=== PATIENT | male | born 1945 ===

== ENCOUNTER 2016-08-02 16:11 | Inpatient (IN) | payer MEDICARE ==
[~2016-08-02] VITALS: Ht 162.6 cm; Wt 51.7 kg
[2016-08-02 16:28] VITALS: BP 147/75; BMI 19.6
[2016-08-02] MEDS ORDERED: FLOMAX0.4 MG PO (16:39)
[2016-08-02] MEDS ORDERED: LOPRESSOR25 MG PO (16:39)
[2016-08-02] MEDS ORDERED: LIPITOR80 MG (16:40)
[2016-08-02] MEDS ORDERED: BAYER CHEWABLE81 MG PO (16:40)
[2016-08-02] MEDS ORDERED: K-TAB10 MEQ PO (16:41)
[2016-08-02] MEDS ORDERED: PACERONE200 MG PO (16:48)
[2016-08-02] MEDS ORDERED: LEXAPRO10 MG PO (16:48)
[2016-08-02] MEDS ORDERED: PRINIVIL20 MG (16:48)
[2016-08-02] MEDS ORDERED: NYSTATIN15 GM TOPICAL (16:50)
[2016-08-02] MEDS ORDERED: NICODERM C1 PATCH .1 TRANSDERM (16:51)
[2016-08-02] MEDS ORDERED: CEFTRIAXONE1 G/VIAL IM (16:51)
[2016-08-02] MEDS ORDERED: IPRAT-ALBUT 0.5-3 ML UPD (16:52)
[2016-08-02] MEDS ORDERED: COLACE100 MG PO (16:53)
[2016-08-02] MEDS ORDERED: SENNA PLUS TA1 UDTAB PO (16:54)
[2016-08-02 17:04] VITALS: BP 147/75
[2016-08-02 19:40] VITALS: BP 141/84
--- NOTE | 2016-08-02 20:00 | NUR ---
PT RESTING IN A WC IN HIS ROOM. ALERT AND ORIENTED X 4. DENIES PAIN OR ACUTE DISCOMFORT. PT REQUESTED HELP WITH PM ADLS BEFORE GETTING IN BED. MOST ADLS DONE WITH MOD ASSIST. PT NOTED TO BE INC. OF A LARGE AMOUNT OF BOWEL AND URINE. ANT CARE AND PAD CHANGE DONE. PT TRANSFERRED INTO BED WITH MOD ASSIST. EXTRA BLANKET PROVIDED PT STATES HE GETS COLD AT NIGHT. SR'S ARE UP X 3 IN BED. CALL LIGHT AND BEDSIDE TABLE ARE WITHIN EASY REACH.
--- NOTE | 2016-08-02 21:50 | NUR ---
RESTING QUIETLY IN BED WITH EYES CLOSED. RESPS ARE EVEN AND UNLABORED. NO ACUTE DISTRESS NOTED.
--- NOTE | 2016-08-02 21:51 | NUR ---
PT IS RESTING QUIETLY IN BED WITH EYES CLOSED. RESPS ARE EVEN AND UNLABORED. NO ACUTE DISTRESS NOTED.
--- NOTE | 2016-08-03 00:10 | NUR ---
PT RESTING IN BED DOING A UPDRAFT TX.
--- NOTE | 2016-08-03 02:38 | NUR ---
PT RESTING, EYES CLOSED. BED LOW. CL IN REACH.
--- NOTE | 2016-08-03 06:01 | NUR ---
PT IS RESTING QUIETLY IN BED WITH EYES CLOSED. NO DISTRESS NOTED. INC. CARE GIVEN.
--- NOTE | 2016-08-03 07:35 | NUR ---
RESTING QUIETLY IN BED. CALL LIGHT IN REACH
--- NOTE | 2016-08-03 08:15 | NUR ---
PT RESTING IN BED WITH EYES OPEN PT INCONTINENT OF URINE AND BOWEL PT CLEANED AND DRYED PT SET UP FOR BREAKFAST CALL LIGHT IN REACH WILL MONITER
[2016-08-03 08:33] VITALS: BP 115/56
[2016-08-03 11:00] VITALS: Ht 162.6 cm; Wt 51.7 kg
--- NOTE | 2016-08-03 14:37 | NUR ---
PT UP IN WHEELCHAIR IN [facility] CALL LIGHT IN REACH NO PROBLEMS WILL MONITER
--- NOTE | 2016-08-03 17:09 | NUR ---
PT UP IN WHEELCHAIR IN ROOM CALL LIGHT IN REACH NO PROBLEMS WILL MONITER
--- NOTE | 2016-08-03 19:10 | NUR ---
SITTING UP IN W/C. DENIES NEEDS.
--- NOTE | 2016-08-03 20:00 | NUR ---
ASSISTED PATIENT UP TO BR COMMODE AFTER URINARY AND BM INCONTINENCE IN BRIEF WHILE IN W/C. ASSISTED HIM TO BR TO COMPLETE TOILETING. SPEECH CLINICIAN NOW ASSISTED PATIENT BACK TO BED AFTER CLEANSING HIM AND PUTTING ON A NEW PULL-UP BRIEF.
[2016-08-03 21:19] VITALS: BP 127/48
--- NOTE | 2016-08-03 22:10 | NUR ---
ASSESSMENT AND HS MEDS COMPLETE. DENIES NEEDS. MEDS GIVEN TO PATIENT CRUSHED IN PUDDING.
--- NOTE | 2016-08-04 00:05 | NUR ---
IN BED, EYES CLOSED. RESTING QUIETLY WITH HOB UP 20 DEGREES.
--- NOTE | 2016-08-04 02:00 | NUR ---
RESTING QUEITLY IN BED, EYES CLOSED. APPEARS COMFORTABLE.
--- NOTE | 2016-08-04 04:30 | NUR ---
IN BED. INJECTION MOLD TOOLING TECHNICIAN CHANGING PATIENT FROM URINE INCONTINENCE IN BRIEF.
[2016-08-04 04:58] LABS: BASOPHILS 0.2 % (0.0-2.0); EOSINOPHILS 1.7 % (0-7); HEMATOCRIT 30.4 % (42.0-54.0); HEMOGLOBIN 9.8 g/dL (13.5-17.5); IMMATURE GRANULOCYTES 0.2 % (0-5); LYMPHOCYTES 26.3 % (15-50); MCH 31.5 pg (26.0-34.0); MCHC 32.2 g/dL (31.0-37.0); MCV 97.7 fL (80.0-100.0); MEAN PLATELET VOLUME 10.9 fL (7.4-10.4); MONOCYTES 8.5 % (2-11); NEUTROPHILS 63.1 % (40-80); PLATELET COUNT 123 10x3/uL (130-400); RBC 3.11 10x6/uL (4.20-6.10); RDW 14.2 % (11.5-14.5); WBC 4.7 10x3/uL (4.8-10.8)
[2016-08-04 05:14] LABS: ANION GAP 9.1 mmol/L (8-16); CALCIUM 7.9 mg/dL (8.5-10.1); CREATININE - SERUM 1.2 mg/dL (0.6-1.3); POTASSIUM - SERUM 3.1 mmol/L (3.5-5.1)
--- NOTE | 2016-08-04 05:40 | NUR ---
REMAINS IN BED, EYES CLOSED. NO DISTRESS EVIDENT.
--- NOTE | 2016-08-04 07:50 | NUR ---
SLEEPING IN BED WITH EYES CLOSED.
--- NOTE | 2016-08-04 08:15 | NUR ---
PT UP IN BED EATING BREAKFAST TOLERATING WELL WILL MONITER
[2016-08-04 09:50] VITALS: BP 141/67
--- NOTE | 2016-08-04 13:52 | RHP ---
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 HISTORY OF PRESENT ILLNESS: The patient is a 71-year-old gentleman who is admitted with a left hemispheric CVA and residual right hemiparesis. He suffered a stroke on June 22, was admitted to [facility], he was [facility] from [facility]. On July 09, he was readmitted to [facility] with respiratory distress. Chest x-ray revealed bibasilar airspace disease, worse on the right than left, and a right pleural effusion. A modified barium swallow evaluation revealed oropharyngeal dysphagia. A diet of mechanical soft with thickened liquids was started, aspiration precautions and continued speech therapy, was transferred to and continues to be at [facility] on July 17 for PT, OT and speech therapy. He was recently given a trial of thin liquids. A chest x-ray on July 29 showed a right lower lobe pneumonia with a small peripneumonic effusion and left lower lobe atelectasis versus pneumonia. His diet was changed back to mechanical soft with thickened liquids. Prior to his CVA in June, he lived alone, was independent with all ADLs and mobility. Currently, he is making progress with minimal to max assist for ADLs and mobility. He needs intensive inpatient therapy to regain his ability discharge back to home. COMORBIDITIES: Include aspiration pneumonia, extensive lower lobe atelectasis, right hemiparesis, hypokalemia, bowel and bladder incontinence, history of SVT, coronary artery disease, COPD, emphysema, right lower lobe pneumonia, right pleural effusion, osteopenia, syncope, lumbar fracture, and multiple rib fractures. PAST MEDICAL HISTORY: Significant for COPD, emphysema, coronary artery disease, history of SVT and also got a history of syncope in the past. PAST SURGICAL HISTORY: Please see previous charts. ALLERGIES: No known drug allergies. CURRENT MEDICATIONS: Include lisinopril 10 mg daily, amiodarone 200 mg b.i.d. He is on Floranex daily. He is on Rocephin, he gets a gram q.24 hours. He is on Senokot 2 tabs daily and Nicoderm patch. He is on Lexapro 10 mg daily, potassium 10 mEq daily, aspirin chewable 81 mg daily, polyethylene glycol 17 grams in 8 ounce of water daily, Colace 100 mg b.i.d. He is on DuoNeb updrafts as needed, Nystatin powder as needed. He is on Lipitor 80 mg at bedtime, and Flomax 0.4 mg q.h.s. HABITS: Does have a history of tobacco use. FAMILY HISTORY: Noncontributory. HISTORY AND PHYSICAL [id number] NAZIAIRINEONIHARIKA II SOCIAL HISTORY: The patient hopes to return back home and get back to his prior level of functioning. REVIEW OF SYSTEMS: GENERAL: Does complain of weakness and fatigue. HEENT: Does complain of cold, cough, or congestion. CARDIOVASCULAR: Denies any chest pain. LUNGS: Does complain of shortness of breath. PHYSICAL EXAMINATION: VITAL SIGNS: Stable, afebrile. GENERAL: Elderly gentleman in no acute distress, alert upon exam. HEENT: Normocephalic and atraumatic. Mucosa moist. NECK: Supple. No lymphadenopathy. LUNGS: Clear in upper cui. HEART: ____ rate and rhythm. ABDOMEN: Benign. EXTREMITIES: No clubbing, cyanosis or edema. NEUROLOGIC: Intact. ASSESSMENT: This is a 71-year-old gentleman admitted to the rehab with a working diagnosis of cerebrovascular accident with right hemiparesis. The patient has potential to make improvement. We instituted the following multidisciplinary therapies including to, but not limited to physical, occupational, respiratory, speech, nutritional services, prosthetics and orthotics. Given his complex condition and risk for more complications, rehabilitation services cannot be provided at a low level of care such as a fci facility. PLAN: 1. Admit to [facility] rehab for intensive inpatient therapy to include the following disciplines: A. Physical therapy to improve gait, all transfer skills and bed mobility to a modified independent level. B. Occupational therapy to improve activities of daily living to a modified independent level. C. Case management to assist with discharge planning and placement options. D. Nutrition to assist with nutritional needs. E. Rehabilitation nursing to assist in monitoring the patient on medical conditions and to assist with any type of bowel or bladder management. 2. The patient's current medication and medical care will be continued. 3. The patient will be placed on standard fall precautions. 4. The patient's estimated length of stay is approximately 7-10 days. 5. We will discuss this patient during care team staff meeting this week. TRANSINT:[id number] Voice Confirmation ID: [id number] DOCUMENT ID: [id number] HISTORY AND PHYSICAL [id number] NIHARIKA STEWART II, SCOTT MD at 1352 CC: [id number] DICTATION DATE: 08/03/16 1118 HOURLY CAREGIVER: 08/03/16 1137 ADM IN [place] [id number] [place] [id number]
--- NOTE | 2016-08-04 17:45 | NUR ---
PT RESTING IN WHEELCHAIR CALL LIGHT IN REACH NO PROBLEMS WILL MONITER
--- NOTE | 2016-08-04 19:00 | NUR ---
PATIENT SITTING UP IN W/C AT BEDSIDE. DENIES NEEDS.
[2016-08-04 19:45] VITALS: BP 132/76
--- NOTE | 2016-08-04 20:00 | NUR ---
ASSISTED PATIENT UP TO BR TO URINATE AND TO CHANGE HIM FROM URINARY INCONTINENCE WHILE SEATED IN W/C. CLEANSED PATIENT AND APPLIED FRESH PULL-UP BRIEF, AND THEN RETURNED HIM TO BED.
--- NOTE | 2016-08-04 21:15 | NUR ---
ASSESSMENT AND HS MEDS COMPLETE. ALTHOUGH PATIENT WAS CHANGED TO REGULAR LIQUIDS, HE STILL INSISTS ON HIS MEDS BEING CRUSHED IN PUDDING, DUE TO FEAR OF CHOKING. DENIES FURTHER NEEDS.
--- NOTE | 2016-08-04 22:15 | NUR ---
RESTING IN BED, EYES CLOSED. HOB UP 40 DEGREES SINCE MED PASS.
--- NOTE | 2016-08-05 | NUR ---
PATIENT AWAKE AFTER SNEEZING IN HIS SLEEP. DENIES NEEDS. CURRENTLY BRIEF IS DRY. CONTINUES WITH HOB UP 40 DEGREES PER PATIENT REQUEST.
--- NOTE | 2016-08-05 01:50 | NUR ---
RESTING IN BED, EYES CLOSED.
--- NOTE | 2016-08-05 04:50 | NUR ---
IN BED, EYES CLOSED. RESPIRATIONS ARE QUIET AND UNLABORED.
--- NOTE | 2016-08-05 06:32 | NUR ---
CHANGED PATIENT TO FRESH SCRUB SHIRT. REMAINS IN BED. DUE TO FREQUENT INCONTINENCE. PATIENT WILL DON SCRUB PANTS AT TIME OF THERAPY.
--- NOTE | 2016-08-05 07:00 | NUR ---
Pt. was received in bed at the beginning of this shift. Awake and oriented x 3. No voiced complaints at this time. No signs of any pain or discomfort. Will be monitoring him throughout this shift and assisting prn with adl's.
[2016-08-05 08:00] VITALS: BP 142/76
--- NOTE | 2016-08-05 12:41 | NUR ---
Nutrititon Follow Up: Chart reviewed. Spoke with pt who reported that his appetite is good. He said that he is eating what he normally does. Pt said that he is not a big eater and usually only eats one big meal per day. Pt likes sandwiches for lunch and refuses supplements at this time. RD encouraged pt to write in food preferences on menu and to increase po intake if possible. Diet: Mechanical Soft with thin liquids PO Intake: 25% (6 meal avg) Wt loss 1# since admit +BM 08/04/16 Labs and meds noted Pt continues with poor po intake - although states that this is normal for him. Rec continue current diet. Rec consider an appetite stimulant to promote po intake. Will honor food preferences. RD following.
--- NOTE | 2016-08-05 14:48 | NUR ---
CARE TEAM MEETING WAS HELD 08/04/16 AND TENATIVE DISCHARGE DATE IS 08/20/16. PATIENT WILL BE RA AT NEXT MEETING. WILL CONTINUE TO FOLLOW WITH PATIENT UNTIL DISCHARGED
--- NOTE | 2016-08-05 18:42 | NUR ---
Pt. has had an uneventful day. He has participated with therapy well today. He transports self around via his wheelchair. Alert and oriented x 3.
--- NOTE | 2016-08-05 19:00 | NUR ---
UP IN W/C IN ROOM. DENIES NEEDS.
[2016-08-05 21:10] VITALS: BP 111/73
--- NOTE | 2016-08-05 21:10 | NUR ---
ASSESSMENT AND HS MEDS COMPLETE. DENIES NEEDS. GAVE PATIENT MEDS CRUSHED IN [place] PUDDING PER HIS REQUEST.
--- NOTE | 2016-08-05 22:35 | NUR ---
RESTING IN BED, EYES CLOSED.
--- NOTE | 2016-08-05 23:30 | NUR ---
PATIENT CALLED TO C/O EMESIS. ADJUNCT PSYCHOLOGY INSTRUCTOR CLEANED HIM UP. EMESIS OCCURRED WITHOUT NAUSEA. SCRUB TOP AND LINENS CHANGED.
--- NOTE | 2016-08-06 02:30 | NUR ---
RESTING QUIETLY IN BED ON LEFT SIDE, EYES CLOSED. NO FURTHER EMESIS TONIGHT.
--- NOTE | 2016-08-06 04:25 | NUR ---
RESTING IN BED ON LEFT SIDE. RESPIRING QUIETLY.
--- NOTE | 2016-08-06 05:45 | NUR ---
REIMBURSEMENT MANAGER JUST CHANGED PATIENT FROM LARGE URINARY IN CONTINENCE. WENT TO HELP HIM PUT ON FRESH SCRUB TOP AND FOUND PATIENT INCONTINENT OF A MODERQATED AMOUNT OF URINE THAT PENETRATED HIS BRIEF AND IN TO HIS PINK BED PAD. CLEANSED PATIENT. REAPPLIED MYCOSTATIN CREAM AND NYSTATIN POWDER TO RASH IN GROINS, ON SCROTUM AND NOW EXTENDING TO HIS BUTTOCKS. CHANGED HIS SCRUB TOP AND PIN BED PAD. PATIENT DENIES FURTHER NEEDS.
[2016-08-06 07:05] LABS: BASOPHILS 0.5 % (0.0-2.0); EOSINOPHILS 2.9 % (0-7); HEMOGLOBIN 9.7 g/dL (13.5-17.5); LYMPHOCYTES 30.9 % (15-50); MCH 31.8 pg (26.0-34.0); MCHC 32.3 g/dL (31.0-37.0); MCV 98.4 fL (80.0-100.0); MEAN PLATELET VOLUME 10.6 fL (7.4-10.4); MONOCYTES 9.3 % (2-11); NEUTROPHILS 56.4 % (40-80); PLATELET COUNT 125 10x3/uL (130-400); RBC 3.05 10x6/uL (4.20-6.10); RDW 14.9 % (11.5-14.5); WBC 4.1 10x3/uL (4.8-10.8)
[2016-08-06 07:17] LABS: ANION GAP 10.1 mmol/L (8-16); CALCIUM 8.3 mg/dL (8.5-10.1); CARBON DIOXIDE 30.2 mmol/L (21.0-32.0); CREATININE - SERUM 1.1 mg/dL (0.6-1.3); POTASSIUM - SERUM 3.3 mmol/L (3.5-5.1)
[2016-08-06 09:50] VITALS: BP 137/71
--- NOTE | 2016-08-06 15:13 | NUR ---
BEDBUG FOUND ON PT BY THERAPIST. PT CHECKED FOR MORE BUGS BUT NONE FOUND. ALL PERSONAL BELONGINGS CHECKED BUT NO MORE BEDBUGS FOUND. ROOM CLEANED AND FUMIGATED.
--- NOTE | 2016-08-06 20:00 | NUR ---
PT IS SITTING IN HIS WC IN HIS ROOM. ALERT AND ORIENTED X 3. DENIES PAIN OR DISCOMFORT AT THIS TIME. REQUESTED ASSISTANCE INTO BED. PT ASSISTED INTO BED WITH MAX ASSIST FOR TRANSFER. INC. CARE GIVEN AND THIS TIME. RIGHT SIDE IS FLACCID. SR'S ARE UP X 2 IN BED. CALL LIGHT AND BEDSIDE TABLE ARE WITHIN EASY REACH.
--- NOTE | 2016-08-06 21:51 | NUR ---
PT IS RESTING QUIETLY IN BED WITH EYES CLOSED. RESPS ARE EVEN AND UNLABORED. NO ACUTE DISTRESS NOTED.
--- NOTE | 2016-08-07 01:29 | NUR ---
RESTING IN BED WITH EYES CLOSED.
--- NOTE | 2016-08-07 03:37 | NUR ---
PT RESTING QUIETLY IN BED WITH EYES CLOSED. NO ACUTE DISTRESS NOTED.
--- NOTE | 2016-08-07 04:00 | NUR ---
pt resting quietly, respirations regular and unlabored, eyes closed, no s/s of acute distress. at beginning of shift patient in huerta via w/c. is able to propell chair independently. pt leans to his right side. pt is able to vocalize his needs.
--- NOTE | 2016-08-07 06:27 | NUR ---
PT RESTING IN BED WITH EYES CLOSED. AWOKE EASILY TO VERBSL STIMULI. INC. CARE GIVEN.
[2016-08-07 09:00] VITALS: BP 132/69
--- NOTE | 2016-08-07 09:45 | NUR ---
SITTING IN WHEELCHAIR IN THERAPY. ALERT AND TOOK AM PILLS WITHOUT DIFFICULTY.
--- NOTE | 2016-08-07 11:40 | NUR ---
SITTING IN WHEELCHAIR AND REFUSES MED UNTIL HE GETS CHOCOLATE PUDDING.
--- NOTE | 2016-08-07 13:18 | NUR ---
SITTING IN WHEELCHAIR IN THE ROOM. CALLIGHT IN REACH.
--- NOTE | 2016-08-07 15:44 | NUR ---
SITTING IN WHEELCHAIR IN ROOM WATCHING TV.
--- NOTE | 2016-08-07 17:27 | NUR ---
SITTING IN WHEELCHAIR WITH HEAD ON THE BED. DENIES PAIN AND STATES I AM TIRED.
--- NOTE | 2016-08-07 19:30 | NUR ---
PT IS SITTING IN A WC IN HIS ROOM. ALERT AND ORIENTED X 3. DENIES PAIN OR DISCOMFORT. VSS. PT REQUESTED ASSIST TO GET IN BED. HE STATED: "IM ACTUALLY DRY FOR ONCE, THAT OTHER GIRL JUST CHANGED ME." TRANSFERRED TO BED WITH MOD ASSIST. SR'S ARE UP X 2 IN BED. CALL LIGHT AND BEDSIDE TABLE ARE WITHIN EASY REACH.
[2016-08-07 20:01] VITALS: BP 148/70
--- NOTE | 2016-08-07 23:00 | NUR ---
PT RESTING QUIETLY IN BED WITH EYES CLOSED. NO DISTRESS NOTED.
--- NOTE | 2016-08-08 00:48 | NUR ---
RESTING IN BED WITH EYES CLOSED.
--- NOTE | 2016-08-08 02:00 | NUR ---
PT RESTING QUIETLY, NO S/S OF ACUTE DISTRESS, RESPIRATIONS REGULAR AND UNLABORED.
--- NOTE | 2016-08-08 03:00 | NUR ---
PT INC. OF A MEDIUM BM. INC. CARE GIVEN. NO FURTHER NEEDS VOICED.
--- NOTE | 2016-08-08 05:54 | NUR ---
PT RESTING IN BED WITH EYES CLOSED. AWAKENS EASILY TO VERBAL STIMULI. NO NEEDS VOICED. LOWER BODY LEFT UNDRESSED AT THIS TIME, DUE TO INCONTINENCE OF URINE.
[2016-08-08 09:00] VITALS: BP 120/72
--- NOTE | 2016-08-08 09:20 | NUR ---
INCONTINENT OF BOWEL AND BLADDER. COMPLETED BED CHANGED. STATES I HAVE INDIGESTION AND REFUSES AM MEDS THIS MORNING. RESTING IN BED WITH CALLIGHT IN REACH.
--- NOTE | 2016-08-08 09:30 | NUR ---
NO COUGHING NOTED. TOOK AM PILLS WITH EASE. CALLIGHT IN REACH.
--- NOTE | 2016-08-08 12:59 | NUR ---
PT IN WHEELCHAIR IN ROOM EATING LUNCH.
--- NOTE | 2016-08-08 15:20 | NUR ---
SITTING IN WHEELCHAIR WITHOUT ANY NEEDS VOICED AND REFUSES NYSTATIN POWDER.
--- NOTE | 2016-08-08 17:45 | NUR ---
SITTING IN WHEELCHAIR EATING DINNER. NO C/O INDIGESTION.
--- NOTE | 2016-08-08 19:18 | NUR ---
PT IS RESTING IN A WC IN HIS ROOM. ALERT AND ORIENTED X 3. DENIES PAIN OR DISCOMOFRT. VSS. PT STATES HE HAS HAD INDEGESTION MOST OF THE DAY, AND THE NEW MEDICINE IS NOT HELPING A LOT YET. PT NOTED TO BE INC. OF A LARGE AMOUNT OF URINE. INC. CARE AND PAD CHANGE DONE. CALL LIGHT AND BEDSIDE TABLE ARE WITHIN EASY REACH.
[2016-08-08 20:00] VITALS: BP 136/76
--- NOTE | 2016-08-08 22:02 | NUR ---
PT. IN BED WITH HOB UP FOR COMFORT. PT. AWAKENS EASILY AND HAS NO VOICED NEEDS/PROBLEMS. CALL LIGHT WITHIN REACH.
--- NOTE | 2016-08-08 22:10 | NUR ---
PT IS RESTING IN BED WITH EYES OPEN. NO NEEDS VOICED.
--- NOTE | 2016-08-09 00:30 | NUR ---
PT RESTING IN BED WITH EYES CLOSED. NO DISTRESS NOTED.
--- NOTE | 2016-08-09 03:11 | NUR ---
RESTING IN BED WITH EYES CLOSED.
--- NOTE | 2016-08-09 05:54 | NUR ---
PT RESTING IN BED WITH EYES CLOSED. AWOKE TO VERBAL STIMULI. PT BEGAN CRYING WHEN TOLD HE HAD A PILL TO TAKE. HE STATED: "THEY JUST TOOK MY BLOOD, I WILL NEVER GET ANY SLEEP." PT REFUSED TO TAKE MED.
[2016-08-09 06:33] LABS: BASOPHILS 0.2 % (0.0-2.0); EOSINOPHILS 2.7 % (0-7); HEMATOCRIT 29.2 % (42.0-54.0); HEMOGLOBIN 9.6 g/dL (13.5-17.5); IMMATURE GRANULOCYTES 0.2 % (0-5); LYMPHOCYTES 28.6 % (15-50); MCH 32.3 pg (26.0-34.0); MCHC 32.9 g/dL (31.0-37.0); MCV 98.3 fL (80.0-100.0); MEAN PLATELET VOLUME 10.3 fL (7.4-10.4); MONOCYTES 10.9 % (2-11); NEUTROPHILS 57.4 % (40-80); PLATELET COUNT 142 10x3/uL (130-400); RBC 2.97 10x6/uL (4.20-6.10); RDW 14.8 % (11.5-14.5); WBC 4.1 10x3/uL (4.8-10.8)
[2016-08-09 06:55] LABS: CALC OSMOLALITY 285 mosm/kg (275-300); CALCIUM 7.7 mg/dL (8.5-10.1); CHLORIDE - SERUM 107 mmol/L (98-107); GLUCOSE 94 mg/dL (74-106); POTASSIUM - SERUM 3.3 mmol/L (3.5-5.1); SODIUM 143 mmol/L (136-145); UREA NITROGEN 15 mg/dL (7-18); eGFR NON AFRICAN AMERICAN 79 mL/min (90-120)
--- NOTE | 2016-08-09 07:00 | NUR ---
Pt. was received in bed at the beginning of this shift. He was alert and oriented x 3. He was repositioned for eatting his breakfast in bed. Vital signs: Temp. 98.0, pulse 66, resp. 14, b/p 140/71, 02Sat. 98%. He is assisted prn with adl's. No signs of any discomfort or distress. Will be monitoring frequently.
[2016-08-09 09:40] VITALS: BP 140/71
--- NOTE | 2016-08-09 12:24 | NUR ---
Pt. is sitting in his wheelchair in his room eatting his lunch. No signs of any problems or concerns. He had been in the therapy gym this morning and participated well.
--- NOTE | 2016-08-09 19:20 | NUR ---
UP IN W/C AT BEDSIDE DENIES NEEDS.
--- NOTE | 2016-08-09 20:40 | NUR ---
ASSISTED PATIENT UP TO COMMODE TO URINATE. COULD NOT DO SO. ALREADY HAD LARGE VOLUME URINARY INCONTINENCE IN BRIEF FROM WHICH IHE WAS CLEANSED AND CHANGED. RETURNED HIM TO BED.
[2016-08-09 22:50] VITALS: BP 140/91
--- NOTE | 2016-08-09 22:50 | NUR ---
ASSESSMENT AND HS MEDS COMPLETE. PATIENT MIDLY IRRITABLE TONIGHT.
--- NOTE | 2016-08-09 23:50 | NUR ---
RESTING IN BED, EYES CLOSED, LYING ON RIGHT SIDE, HOB UP 30 DEGREES.
--- NOTE | 2016-08-10 02:00 | NUR ---
RESTING IN BED, EYES CLOSED. HOB UP 40 DEGREES. PATIENT IN PARTIAL RIGHT SIDELYING POSITION.
--- NOTE | 2016-08-10 04:00 | NUR ---
CONTINUES IN BED, EYES CLOSED. HOB UP 30 DEGREES. RESPIRATIONS ARE QUIET AND UNLABORED.
--- NOTE | 2016-08-10 06:10 | NUR ---
CLEANSED AND CHANGED PATIENT FROM LARGE URINARY INCONTINENCE THAT SOILED HIS PULL-UP BRIEF, PINK BED PAD AND SCRUB TOP. AFTER CLEANSING PATIENT APPLIED NYSTATIN PWD TO BUTTOCKS, GROINS AND PERINEUM DUE TO RASH. APPLIED FRESH SCRUB TOP, PULL-UP BRIEF AND CHANGED PINK BED PAD. PATIENT WAS COOPERATIVE AFTER BEING WHINY INITIALLY. REMINDED HIM HE HAS BEEN HERE LONG ENOUGH TO KNOW WE CANNOT NOT LEAVE HIM WET, AND THAT WE MUST HAVE HIM DRESSED INSOFAR IT IS PRACTICAL, FOR THERAPY THIS MORNING.
--- NOTE | 2016-08-10 07:00 | NUR ---
Pt. was received in bed at the beginning of this shift. Alert and oriented x 3. Pt. denies any pain or discomfort at this time. He is assisted prn with adl's. His medications are crushed and placed in vanilla pudding. Will be monitoring him throughout this shift. Vital signs: Temp. 98.6, pulse 74, resp. 14, b/p 138/76, 02Sat. 97%.
[2016-08-10 09:19] VITALS: BP 138/76
--- NOTE | 2016-08-10 19:00 | NUR ---
PATIENT UP IN W/C IN ROOM. DENIES CURRENT NEEDS.
[2016-08-10 21:00] VITALS: BP 140/74
--- NOTE | 2016-08-10 21:00 | NUR ---
ASSISTED PATIENT UP TO BR TO URINATE AND CHANGE HIS BRIEF AFTER LARGE URINARY INCONTINENCE. CLEANSED PATIENT AND APPLIED VRESH PULL-UP AND SCRUB TOP. RETURNED HIM TO BED AND ASSESSED HIM AND TOOK HIS VS. TOLD HIM I WILL RETURN LATER WITH HIS BEDTIME MEDS.
--- NOTE | 2016-08-10 22:40 | NUR ---
REPOSITIONED PATIENT IN BED. GAVE HIM HIS HS MEDS CRUSHED IN PUDDING. INITIALLY HE REFUSED HIS FLOMAX HE THOUGHT IT WAS A DIURETIC CAUSING HIM TO URINATE EXCESSIVELY. INFORMED HIM IT IS TO ALLOW HIS BLADDER TO EMPTY AND THAT THE URINE HE THINKS IS TOO MUCH IS HIS NORMAL VOLUME, NOT EXCESS. ALSO REMINDED HIM THAT THE FLOWMAX WAS ORDERED FOR HIM HE WAS UNABLE TO EMPTY HIS BLADDER SUBSEQUENT TO HIS STROKE. AFTER THIS PATIENT HAD NO PROBLEM WITH TAKING THE MEDICATION. CONTINUES TO INSIST MEDS BE CRUSHED IN PUDDING DESPITE BEING ON MECHANICAL SODT DIET WITH THIN LIQUIDS.
--- NOTE | 2016-08-11 00:15 | NUR ---
RESTING IN BED ON RIGHT SIDE. NO EVIDENT DISCOMFORT.
--- NOTE | 2016-08-11 02:00 | NUR ---
IN BED, EYES CLOSED. NO DISTRESS NOTED.
--- NOTE | 2016-08-11 04:30 | NUR ---
CONTINUES IN BED, EYES CLOSED. RESPIRING QUIETLY.
--- NOTE | 2016-08-11 05:50 | NUR ---
CLEANSED AND CHANGED PATIENT FROM LARGE URINARY INCONTINENCE. APPLIED MYCOSTATIN CREAM AND NYSTATIN PWD TO RASHY AREAS OF GROINS, BUTTOCKS AND ANT AREAS I HAD TO WASH THE PREVIOUS APPLICATION OFF TO CLEANSE PATIENT. CHANGED HIS SCRUB SHIRT ALSO. SCRUB PANTS LEFT OFF DUE TO ONGOING INCONTINENCE.
[2016-08-11 05:55] LABS: BASOPHILS 0.3 % (0.0-2.0); HEMATOCRIT 28.9 % (42.0-54.0); HEMOGLOBIN 9.3 g/dL (13.5-17.5); LYMPHOCYTES 26.9 % (15-50); MCH 31.3 pg (26.0-34.0); MCHC 32.2 g/dL (31.0-37.0); MCV 97.3 fL (80.0-100.0); MEAN PLATELET VOLUME 9.8 fL (7.4-10.4); MONOCYTES 13.3 % (2-11); NEUTROPHILS 56.5 % (40-80); PLATELET COUNT 139 10x3/uL (130-400); RBC 2.97 10x6/uL (4.20-6.10); RDW 14.7 % (11.5-14.5); WBC 3.6 10x3/uL (4.8-10.8)
[2016-08-11 06:01] LABS: CALC OSMOLALITY 284 mosm/kg (275-300); CALCIUM 8.2 mg/dL (8.5-10.1); CARBON DIOXIDE 28.3 mmol/L (21.0-32.0); CHLORIDE - SERUM 109 mmol/L (98-107); GLUCOSE 87 mg/dL (74-106); POTASSIUM - SERUM 3.4 mmol/L (3.5-5.1); SODIUM 143 mmol/L (136-145); UREA NITROGEN 16 mg/dL (7-18); eGFR NON AFRICAN AMERICAN 79 mL/min (90-120)
[2016-08-11 07:51] VITALS: BP 144/78
--- NOTE | 2016-08-11 09:26 | NUR ---
SITTING IN WHEELCHAIR AFTER SHOWER TODAY.
--- NOTE | 2016-08-11 10:18 | NUR ---
Nutrition Follow Up: Chart reviewed. Diet: Regular Mech Soft with Thin Liquids PO Intake: 68% (9 meal avg) +BM 08/10/16 No new wt to assess Labs noted - K+ low Meds noted Pt with much improved po intake. Rec continue current diet. Will continue to send selective menus and honor food preferences. RD following.
--- NOTE | 2016-08-11 11:50 | NUR ---
SITTING IN WHEELCHAIR EATING LUNCH. NO NEEDS VOICED.
--- NOTE | 2016-08-11 13:49 | NUR ---
AMBULATING IN HALLWAY WITH CANE AND 2 THERAPIST.
--- NOTE | 2016-08-11 15:52 | NUR ---
SITTING IN WHEELCHAIR TALKING TO KEILA SPEECH THERAPIST.
--- NOTE | 2016-08-11 17:19 | NUR ---
CARE TEAM MEETING: TENATIVE DISCHARGE DATE IS 08/20/16. WILL CONTINUE TO FOLLOW WITH PATIENT UNTIL DISCHARGED
--- NOTE | 2016-08-11 17:31 | NUR ---
PT INCONTINENT OF URINE AND ASSISTED TO THE BR AND BACK TO WHEELCHAIR WITHOUT ANY FALLS NOTED. PERICARE DONE.
--- NOTE | 2016-08-11 19:10 | NUR ---
UP IN W/C IN [place]. HANDED ME HIS MENU WHICH HE COMPLETED WITH NON-DOMINANT HAND. APPEARS VERY PLEASED HE WAS ABLE TO DO IT. DENIES CURRENT NEEDS.
--- NOTE | 2016-08-11 20:00 | NUR ---
SHIP BOSS ASSISTED PATIENT UP TO BR SAFIA TO URINATE AFTER INCONTINENCE IN HIS BRIEF. PATIENT WAS THEN RETURNED TO BED WHERE HE NOW IS. DENIES CURRENT NEEDS.
[2016-08-11 20:14] VITALS: BP 148/71
--- NOTE | 2016-08-11 22:15 | NUR ---
ASSESSMENT AND HS MEDS COMPLETE. DENIES NEEDS. TOOK PO MEDS CRUSHED IN CHOCOLATE PUDDING.
--- NOTE | 2016-08-12 00:15 | NUR ---
IN BED, AWAKE. DENIES NEEDS.
--- NOTE | 2016-08-12 02:40 | NUR ---
RESTING IN BED, EYES CLOSED.
--- NOTE | 2016-08-12 04:35 | NUR ---
IN BED, EYES CLOSED, RESPIRATIONS UNLABORED.
--- NOTE | 2016-08-12 05:55 | NUR ---
GAVE PATIENT SCHEDULED PO PROTONIX. PATIENT WAS ALREADY CLEANSED AND CHANGED BY BENDER MACHINE. DENIES CURRENT NEEDS.
[2016-08-12 08:16] VITALS: BP 131/74
--- NOTE | 2016-08-12 09:58 | NUR ---
SITTING IN WHEELCHAIR IN THE ROOM. ASSISTED TO BR AND HAD A MEDIUM BRONW STOOL AND BACK TO WHEELCHAIR. TOOK 9AM PILLS WITH EASE BUT REFUSES SENEKOT THIS AM. CALLIGHT IN REACH.
--- NOTE | 2016-08-12 13:15 | NUR ---
SITTING IN ROOM IN WHEELCHAIR WITH CALLIGHT IN REACH.
--- NOTE | 2016-08-12 15:02 | NUR ---
SITTING IN WHEELCHAIR WITH CALLIGHT IN REACH.
--- NOTE | 2016-08-12 17:23 | NUR ---
ASSISTED TO BR AND BACK TO WHEELCHAIR INCONTINENT OF URINE. NO FALLS NOTED.
--- NOTE | 2016-08-12 19:00 | NUR ---
UP IN W/C AT BEDSIDE. NO COMPLAINTS AT THIS TIME.
--- NOTE | 2016-08-12 21:35 | NUR ---
RESTING IN BED, EYES CLOSED.
--- NOTE | 2016-08-12 22:50 | NUR ---
ASSESSMENT AND HS MEDS COMPLETE. GAVE PATIENT ORAL MEDS CRUSHED IN CHOCOLATE PUDDING. TO INCONTINENCE, CURRENTLY PATIENT IS DRY.
[2016-08-12 22:54] VITALS: BP 143/71
--- NOTE | 2016-08-13 00:15 | NUR ---
RESTING IN BED, EYES CLOSED IN PARTIAL RIGHT SIDELYING POSITION.
--- NOTE | 2016-08-13 02:15 | NUR ---
RESTING IN BED, HOB UP 20 DEGREES. LYING PARTIALLY ON RIGHT SIDE.
--- NOTE | 2016-08-13 04:15 | NUR ---
RESTING QUIETLY IN BED. RESPIRATIONS UNLABORED.
--- NOTE | 2016-08-13 06:54 | NUR ---
GAVE PATIENT SCHEDULED PROTONIX AFTER POLITICAL CONSULTANT JUST CLEANSED AND CHANGED PATIENT.
[2016-08-13 08:14] LABS: BASOPHILS 0.5 % (0.0-2.0); EOSINOPHILS 2.6 % (0-7); HEMATOCRIT 29.8 % (42.0-54.0); HEMOGLOBIN 9.8 g/dL (13.5-17.5); IMMATURE GRANULOCYTES 0.3 % (0-5); LYMPHOCYTES 20.1 % (15-50); MCH 32.2 pg (26.0-34.0); MCHC 32.9 g/dL (31.0-37.0); MEAN PLATELET VOLUME 9.9 fL (7.4-10.4); MONOCYTES 10.2 % (2-11); NEUTROPHILS 66.3 % (40-80); PLATELET COUNT 154 10x3/uL (130-400); RBC 3.04 10x6/uL (4.20-6.10); RDW 14.8 % (11.5-14.5); WBC 3.8 10x3/uL (4.8-10.8)
[2016-08-13 08:36] LABS: ANION GAP 10.3 mmol/L (8-16); CALCIUM 8.2 mg/dL (8.5-10.1); CARBON DIOXIDE 28.5 mmol/L (21.0-32.0); CREATININE - SERUM 1.1 mg/dL (0.6-1.3); POTASSIUM - SERUM 3.8 mmol/L (3.5-5.1)
--- NOTE | 2016-08-13 09:30 | NUR ---
ASSISTED TO WHEELCHAIR AND TOOK AM PILLS. NO NEEDS VOICED.
[2016-08-13 10:34] VITALS: BP 136/74
--- NOTE | 2016-08-13 13:26 | NUR ---
SITTING IN WHEELCHAIR NO NEEDS NOTED.
--- NOTE | 2016-08-13 15:06 | NUR ---
SITTING IN WHEELCHAIR IN GYM DRINKING WATER. NO NEEDS VOICED.
--- NOTE | 2016-08-13 17:50 | NUR ---
SITTING IN WHEELCHAIR IN THE ROOM EATING DINNER.
--- NOTE | 2016-08-13 19:35 | NUR ---
PT SITTING UP IN W/C APPEARING TO READ THE NEWSPAPER, NO NEEDS VERBALIZED.
--- NOTE | 2016-08-13 21:21 | NUR ---
PT VERY IRRITATED, ROLAND IN ANSWERING CALLLIGHT, HE STATES HE IS TIRED OF BEING WOKEN UP, BLOOD DRAWN AND READY TO GO HOME. MEDS ADMINISTERED, ASSESSMENT, ASSISTED TO BED.
[2016-08-13 21:37] VITALS: BP 130/68
--- NOTE | 2016-08-14 04:38 | NUR ---
PT RESTING QUIETLY EYES CLOSED, NO S/S OF ACUTE DISTRESS. INCONTINENCE CHECKS DURING THE SHIFT, CHANGED NEEDED.
--- NOTE | 2016-08-14 07:00 | NUR ---
Pt. was received at the beginning of this shift. Alert and oriented x 3. He denied any pain or discomfort. Rt. side is flaccid. Vital signs: Temp. 98.3, pulse 64, resp. 20, b/p 135/79, 02Sat. 97%. Pt. requires total support with his adl's. Will be monitoring pt. throughout this shift and following his plan of care. No signs of distress.
--- NOTE | 2016-08-14 12:00 | NUR ---
Pt. is having an uneventful day. Pt is friendly and cooperative with staff. He transports himself around via his wheelchair.
[2016-08-14 13:41] VITALS: BP 135/79
[2016-08-14 19:20] VITALS: BP 128/60
--- NOTE | 2016-08-14 19:48 | NUR ---
PT SITTING UP IN W/C WATCHING TV, PLEASANT. ASSISTED WITH MENU COMPLETION.
--- NOTE | 2016-08-15 01:05 | NUR ---
pt resting quietly, eyes closed, no s/s of acute distress.
--- NOTE | 2016-08-15 06:36 | NUR ---
pt refused an offer of shower, states will take one later. pt denies being incontinent, didn't want to be bothered and wanted to be able to sleep.
[2016-08-15 07:00] VITALS: BP 145/76
--- NOTE | 2016-08-15 07:00 | NUR ---
PT WAS RECEIVED AT THE BEGINNING OF THE SHIFT AT 0700 IN HIS BED. PT. AWAKE AND ALERT. ORIENTED X 3. DENIES ANY NEEDS OR CONCERNS. CALL LIGHT IS IN REACH. VITAL SIGNS: TEMP. 97.9, PULSE 61, RESP. 16, B/P 145/76, 02SAT. 97%. PT. REQUIRES ASSIST FROM STAFF WITH ALL ADL'S. WILL CONTINUE TO MONITOR.
--- NOTE | 2016-08-15 17:36 | NUR ---
Pt has had an uneventful shift today. No changes to report in health condition. He has watched tv this afternoon and sorta cat-napped in his wheelchair. No voiced complaints to staff. Continuing to observe.
--- NOTE | 2016-08-15 19:30 | NUR ---
RESTING QUIETLY WATCHING TV IN W/C. STATES IS TIRED AND WOULD LIKE TO BE ABLE TO SLEEP. PT REPORTS THAT HE HASN'T BEEN ABLE TO SLEEP WELL, AND IS READY FOR DISCHARGE. PT CONVERSIVE, DISCUSSED FUTURE PROGRESSION AFTER REHAB WTIH CVA DEFICITS. PT STATES HE UNDERSTANDS THE NEED TO BE CAUTIOUS WITH RIGHT ARM.
[2016-08-15 22:05] VITALS: BP 127/70
--- NOTE | 2016-08-16 01:14 | NUR ---
PT REQUESTED MORE LIGHT IN HIS ROOM BE TURNED OFF, TURNED OFF LIGHT OVER SINK. PT CLOSED EYES, SNUGGLED UNDER BLANKETS.
[2016-08-16 06:20] LABS: BASOPHILS 0.2 % (0.0-2.0); EOSINOPHILS 2.1 % (0-7); HEMATOCRIT 30.6 % (42.0-54.0); IMMATURE GRANULOCYTES 0.2 % (0-5); LYMPHOCYTES 16.7 % (15-50); MCH 32.2 pg (26.0-34.0); MCHC 32.7 g/dL (31.0-37.0); MCV 98.4 fL (80.0-100.0); MEAN PLATELET VOLUME 10.2 fL (7.4-10.4); MONOCYTES 9.4 % (2-11); NEUTROPHILS 71.4 % (40-80); PLATELET COUNT 158 10x3/uL (130-400); RBC 3.11 10x6/uL (4.20-6.10); RDW 15.1 % (11.5-14.5); WBC 4.7 10x3/uL (4.8-10.8)
--- NOTE | 2016-08-16 06:36 | NUR ---
PT RESTING QUIETLY, LARGE BM THIS AM INCONTINENT OF BOWEL AND BLADDER. ALERT, ORIENTED.
[2016-08-16 06:39] LABS: ANION GAP 8.6 mmol/L (8-16); CALCIUM 7.8 mg/dL (8.5-10.1); CARBON DIOXIDE 29.1 mmol/L (21.0-32.0); CREATININE - SERUM 1.2 mg/dL (0.6-1.3); POTASSIUM - SERUM 3.7 mmol/L (3.5-5.1)
[2016-08-16 09:02] VITALS: BP 139/78
--- NOTE | 2016-08-16 19:35 | NUR ---
PT. UP IN W/C TALKING ON THE TELEPHONE. ASSESSMENT COMPLETED. PT. HAS NO VOICED NEEDS/COMPLAINTS AT THIS TIME. PT. IS NOT READY TO GO BACK TO BED YET. CALL LIGHT WITHIN REACH.
[2016-08-16 20:30] VITALS: BP 136/77
--- NOTE | 2016-08-16 20:30 | NUR ---
PT. REQUESTING TO BE HELPED BACK TO BED. PROVIDED STANDBY ASSIST WHILE PT. TRANSFERED BACK INTO BED THEN HELPED LIFT LE'S UP INTO BED. PT. POSITIONED HIMSELF TO COMFORT. BRIEF CHANGED IT WAS SOILED AND SKIN CARE PROVIDED TO RED RASH IN GROINS AND SCROTAL AREAS. CALL LIGHT WITHIN REACH.
--- NOTE | 2016-08-17 02:21 | NUR ---
PT. LYING IN BED WITH HOB UP FOR COMFORT WITH EYES CLOSED AND RESP. EVEN. CALL LIGHT WITHIN REACH.
[2016-08-17 08:33] VITALS: BP 147/71
--- NOTE | 2016-08-17 12:24 | NUR ---
Nutrition Follow Up: Chart reviewed. Diet: Regular Mech Soft with Thin Liquids PO Intake: 92% (9 meal avg) +BM 08/16/16 Meds and labs noted No new wt to assess Pt with good po intake at this time. Rec continue current diet. RD following.
--- NOTE | 2016-08-17 19:30 | NUR ---
ASSISTED PATIENT UP TO BR COMMODE TO FINISH URINATING.
[2016-08-17 21:45] VITALS: BP 154/80
--- NOTE | 2016-08-17 21:45 | NUR ---
ASSESSMENT AND HS MEDS COMPLETE. ASSISTED PATIENT UP TO BR TO FINISH URINATING AND CHANGE HIS BRIEF DUE TO INCONTINENCE WHILE SEATED IN W/C PRIOR TO ASSESSMENT.
--- NOTE | 2016-08-17 22:30 | NUR ---
RESTING QUIETLY IN BED, EYES CLOSED.
--- NOTE | 2016-08-18 00:20 | NUR ---
IN BED, EYES CLOSED. NO DISTRESS NOTED.
--- NOTE | 2016-08-18 02:05 | NUR ---
REMAINS IN BED, EYES CLOSED. HOB UP 20 DEGREES, LYING IN PARTIAL RIGHT SIDE POSITION. NO APPARENT DISTRESS.
--- NOTE | 2016-08-18 04:30 | NUR ---
RESTING IN BED, EYES CLOSED. NOW ON BACK, HOB UP 20 DEGREES.
--- NOTE | 2016-08-18 06:05 | NUR ---
PATIENT WAS CLEANSED AND CHANGED (BRIEF AND SCRUB TOP) AND PINK BED PAD WAS CHANGED AFTER LARGE URINARY INCONTINENCE. GAVE PATIENT SCHEDULED PROTONIX PO.
--- NOTE | 2016-08-18 08:00 | NUR ---
BREAKFAST GIVEN.DENIES NEEDS.CL IN REACH.
[2016-08-18 08:27] VITALS: BP 138/63
--- NOTE | 2016-08-18 12:00 | NUR ---
SITTING UP IN WC EATING LUNCH.
--- NOTE | 2016-08-18 16:00 | NUR ---
REMAINS UP IN WC.DENIES NEEDS.
--- NOTE | 2016-08-18 16:23 | NUR ---
CARE TEAM MEETING: REFERRAL HAS BEEN MADE TO [facility] FOR POSSIBLE ADMISSION DUE TO NO ONE TO ASSIT HIM AT HOME. WILL CONTINUE TO FOLLOW WITH PATIENT. TENATIVE DISCHARGE DATE IS 08/20/16
--- NOTE | 2016-08-18 19:00 | NUR ---
UP IN W/C IN ROOM, WATCHING TV. NO COMPLAINTS AT THIS TIME.
[2016-08-18 20:10] VITALS: BP 140/69
--- NOTE | 2016-08-18 20:10 | NUR ---
VS AND ASSESSMENT COMPLETE. PATIENT DENIES NEEDS. REMAINS UP IN W/C AT BEDSIDE.
--- NOTE | 2016-08-18 21:25 | NUR ---
ASSISTED PATIENT INTO BED AND CHANGED ANT PAD WITHIN BRIEF DUE TO URINE INCONTINENCE. GAVE PATIENT HS MEDS CRUSHED IN CHOCOLATE PUDDING.
--- NOTE | 2016-08-18 22:10 | NUR ---
RESTING IN BED, EYES CLOSED. APPEARS COMFORTABLE.
--- NOTE | 2016-08-19 00:15 | NUR ---
RESTING IN BED, EYES CLOSED.
--- NOTE | 2016-08-19 02:20 | NUR ---
RESTING IN BED, EYES CLOSED. HOB UP 30 DEGREES. NO DISTRESS NOTED.
--- NOTE | 2016-08-19 04:30 | NUR ---
CONTINUES IN BED, EYES CLOSED. RESPIRATIONS ARE QUIET AND UNLABORED.
--- NOTE | 2016-08-19 05:45 | NUR ---
CLEANSED AND CHANGED PATIENT FROM MODERATE URINARY INCONTINENCE AND MEDIUM VOLUME SOFT BM INCONTINENCE. GAVE PATIENT SCHEDULED PO PROTONIX. PATIENT DENIES NEEDS.
[2016-08-19 06:41] LABS: BASOPHILS 0.3 % (0.0-2.0); EOSINOPHILS 2.9 % (0-7); HEMATOCRIT 28.2 % (42.0-54.0); HEMOGLOBIN 9.2 g/dL (13.5-17.5); IMMATURE GRANULOCYTES 0.3 % (0-5); LYMPHOCYTES 20.5 % (15-50); MCH 31.8 pg (26.0-34.0); MCHC 32.6 g/dL (31.0-37.0); MCV 97.6 fL (80.0-100.0); MEAN PLATELET VOLUME 9.7 fL (7.4-10.4); MONOCYTES 12.4 % (2-11); NEUTROPHILS 63.6 % (40-80); PLATELET COUNT 162 10x3/uL (130-400); RBC 2.89 10x6/uL (4.20-6.10); RDW 15.2 % (11.5-14.5); WBC 3.8 10x3/uL (4.8-10.8)
[2016-08-19 06:50] LABS: ANION GAP 10.3 mmol/L (8-16); CALCIUM 8.1 mg/dL (8.5-10.1); CARBON DIOXIDE 27.3 mmol/L (21.0-32.0); CREATININE - SERUM 1.2 mg/dL (0.6-1.3); POTASSIUM - SERUM 3.6 mmol/L (3.5-5.1)
--- NOTE | 2016-08-19 08:00 | NUR ---
AWAKE FOR BREAKFAST,SHIFT ASSMT COMPLETED.LT INGUINAL HERNIA REMAINS UNCHANGED.DENIES PAIN ,DENIES NEEDS.CL IN REACH.MEAL SET-UP PROVIDED.
[2016-08-19 09:31] VITALS: BP 130/72
--- NOTE | 2016-08-19 12:00 | NUR ---
SITTING UP IN CHAIR EATING LUNCH.CL IN REACH.
--- NOTE | 2016-08-19 14:53 | NUR ---
PATIENT DISCHARGING TO [facility] 08/20/16 [facility]. NO DME OR HOME HEALTH NEEDED AT THIS TIME.APPOINTMENT WITH DR. PETERSON WILL BE MADE AT TIME OF DISCHARGE FROM THE FACILITY. PATIENT CHOICE FORM FOR SNF AND [facility] FORM SIGNED , EXPLAINED AND FILED IN CHART. WILL CONTINUE TO FOLLOW WITH PATIENT UNTIL DISCHARGED. [facility] WILL TRANSPORT AT 1:00PM
--- NOTE | 2016-08-19 16:00 | NUR ---
IN THERAPY ROOM;JETHRO WELL.DENIES NEEDS.
[2016-08-19 19:00] VITALS: BP 153/74
--- NOTE | 2016-08-19 19:30 | NUR ---
PATIENT UP IN W/C IN ROOM. DENIES NEEDS.
--- NOTE | 2016-08-19 20:30 | NUR ---
PATIENT WAS ASSISTED INTO BED FROM W/C. NO COMPLAINTS AT THIS TIME.
--- NOTE | 2016-08-19 21:45 | NUR ---
ASSESSMENT AND HS MEDS COMPLETE. DENIES NEEDS.
--- NOTE | 2016-08-20 00:15 | NUR ---
ASSISTED PATIENT UP TO BR COMMODE TO URINATE AND HAVE A BM.
--- NOTE | 2016-08-20 00:15 | NUR ---
CONTINUES IN BED, EYES CLOSED.
--- NOTE | 2016-08-20 02:15 | NUR ---
REMAINS IN BED, RESTING QUIETLY.
--- NOTE | 2016-08-20 04:35 | NUR ---
PATIENT AWAKE. CLEANSED HIM FROM INCONTINENCE IN HIS BRIEF, AND AFTER URINATING DURING HIS BRIEF CHANGE, CLEANSED HIM A SECOND TIME. APPLIED MYCOSTATIN CREAM AND NYSTATIN POWDER TO RASHY AREAS OF BUTTOCKS GROINS AND SCROTUM. GAVE PATIENT HIS PO PROTONIX EARLY TO AVOID DISTURBING HIM AGAIN IN A SHORT WHILE.
--- NOTE | 2016-08-20 06:00 | NUR ---
RESTING QUIETLY IN BED. NO DISTRESS NOTED.
--- NOTE | 2016-08-20 07:00 | NUR ---
PT WAS RECEIVED AT THE BEGINNING OF THIS SHIFT. STABLE CONDITION OBSERVED. NO VOICED COMPLAINTS OF PAIN OR DISCOMFORT. VITAL SIGNS WNL. STAFF WILL MONITOR HIM AND ASSIST PRN WITH ADL'S.
[2016-08-20] MEDS ORDERED: K-DUR20 MEQ PO (08:17)
[2016-08-20] MEDS ORDERED: PROTONIX40 MG PO (08:17)
[2016-08-20 10:22] VITALS: BP 145/77
--- NOTE | 2016-08-20 14:15 | NUR ---
PT HAS BEEN DISCHARGED TO ASSISTED. STABLE CONDITION UPON LEAVING REHAB. UNIT. ALL OF PERSONAL BELONGINGS WERE SENT WITH HIM. DISCHARGE PAPERWORK WAS SENT WITH THE GIS ADMINISTRATOR OF THE [facility]. DISCHARGE REPORT WAS PHONED INTO RECEIVING NURSE AT [facility]. PT. WAS TAKEN OUT TO [facility] IN A WHEELCHAIR.
== END 2016-08-20 14:17 | DRG 56 ==
LOC: D.REHAB 16:11
PROVIDERS: ADMIT Emergency Medicine
DX: I69.351 Hemiplegia and hemiparesis following cerebral infarction affecting right dominant side (principal); J69.0 Pneumonitis due to inhalation of food and vomit; J98.11 Atelectasis; J90 Pleural effusion, not elsewhere classified; I69.391 Dysphagia following cerebral infarction; R13.12 Dysphagia, oropharyngeal phase; E87.6 Hypokalemia; R15.9 Full incontinence of feces; R32 Unspecified urinary incontinence; I25.10 Atherosclerotic heart disease of native coronary artery without angina pectoris; J44.9 Chronic obstructive pulmonary disease, unspecified; M85.80 Other specified disorders of bone density and structure, unspecified site; R55 Syncope and collapse

== ENCOUNTER 2017-02-23 23:05 | Inpatient (IN) | payer MEDICARE, OTHER ==
[~2017-02-23] VITALS: Ht 162.6 cm; Wt 56.7 kg
[~2017-02-23 23:05] MED LIST: BAYER CHEWABLE81 MG PO; CEFTRIAXONE1 G/VIAL IM; COLACE100 MG PO; FLOMAX0.4 MG PO; IPRAT-ALBUT 0.5-3 ML UPD; K-DUR20 MEQ PO; K-TAB10 MEQ PO; LEXAPRO10 MG PO; LIPITOR80 MG PO; LOPRESSOR25 MG PO; NICODERM C1 PATCH .1 TRANSDERM; NYSTATIN15 GM TOPICAL; PACERONE200 MG PO; PRINIVIL20 MG PO; PROTONIX40 MG PO; SENNA PLUS TA1 UDTAB PO
[2017-02-23 23:42] LABS: HEMATOCRIT 24.3 % (42.0-54.0); HEMOGLOBIN 8.2 g/dL (13.5-17.5); LYMPHOCYTES 11.6 % (15-50); MCH 30.7 pg (26.0-34.0); MCHC 33.7 g/dL (31.0-37.0); MEAN PLATELET VOLUME 10.3 fL (7.4-10.4); NEUTROPHILS 82.5 % (40-80); PLATELET COUNT 359 10x3/uL (130-400); RBC 2.67 10x6/uL (4.20-6.10); RDW 17.3 % (11.5-14.5)
[2017-02-23 23:50] LABS: APPEARANCE CLOUDY (CLEAR); BILIRUBIN NEGATIVE (NEGATIVE); COLOR DK YELLOW (YELLOW); GLUCOSE NEGATIVE (NEGATIVE); KETONE NEGATIVE (NEGATIVE); LEUKOCYTE ESTERASE 2+ (NEGATIVE); NITRITE NEGATIVE (NEGATIVE); PROTEIN 2+ mg/dL (NEGATIVE); SPECIFIC GRAVITY 1.015 (1.005-1.020); UROBILINOGEN NORMAL (NORMAL)
[2017-02-23 23:51] LABS: BACTERIA MANY /hpf (NONE SEEN); EPITHELIAL CELLS 0-5 /hpf (0-5); WHITE CELLS - URINE 25-50 /hpf (0-5)
[2017-02-23 23:57] LABS: ALBUMIN 1.5 g/dL (3.4-5.0); ANION GAP 13.2 mmol/L (8-16); CALCIUM 7.2 mg/dL (8.5-10.1); CARBON DIOXIDE 24.9 mmol/L (21.0-32.0); CREATININE - SERUM 4.9 mg/dL (0.6-1.3); POTASSIUM - SERUM 4.1 mmol/L (3.5-5.1); PROTEIN - SERUM 7.1 g/dL (6.4-8.2)
--- NOTE | 2017-02-24 02:29 | NUR ---
REPORT RECIEVED FROM BETSY LONG.
--- NOTE | 2017-02-24 03:03 | NUR ---
ARRIVED TO FLOOR VIA STRETCHER, ACCOMPANIED BY HOSPITAL STAFF. RESPIRATIONS EVEN AND UNLABORED ON 2LPM VIA NC. ORIENTED TO UNIT, REPOSITIONED FOR COMFORT. SAM TO GRAVITY. PLAN OF CARE DISCUSSED. WILL CONTINUE TO MONITOR. SEE NURSE ASSESSMENT.
[2017-02-24] MEDS ORDERED: HYDROCODON-ACE1 EAC7 PO (06:07)
[2017-02-24] MEDS ORDERED: METOPROLOL TART25 MG PO (06:08)
[2017-02-24] MEDS ORDERED: FUROSEMIDE20 MG PO (06:08)
[2017-02-24] MEDS ORDERED: LOVENOX30 MG/0.3 SC (06:08)
[2017-02-24] MEDS ORDERED: REMERON15 MG PO (06:09)
[2017-02-24 08:17] VITALS: BP 104/45
--- NOTE | 2017-02-24 10:10 | NUR ---
TELEMETRY SR. IV PATENT. SAM INTACT. WILL CONT. PLAN OF CARE.
--- NOTE | 2017-02-24 11:00 | NUR ---
URINE SPECIMEN COLLECTED AND TAKEN TO LAB. WILL MONITOR.
--- NOTE | 2017-02-24 11:15 | NUR ---
1 UNIT PRBC STARTED. VS WNL. LINE IS PATENT.
[2017-02-24 12:05] LABS: CREATININE - URINE 113.4 mg/dL (30-125); PROTEIN - URINE 215.7 mg/dL (0.0-11.9)
[2017-02-24 12:06] LABS: CREATININE - URINE 112.9 mg/dL (30-125); POTASSIUM - URINE 48.8 MMOL/L (12.0-62.0); PRO/CRE RATIO URINE 1.9 mg/g; PROTEIN - URINE 216.2 mg/dL (0.0-11.9)
[2017-02-24 12:40] VITALS: Ht 162.6 cm; Wt 56.7 kg
--- NOTE | 2017-02-24 14:28 | NUR ---
BLOOD COMPLETED WITHOUT ADVERSE REACTIONS NOTED.
[2017-02-24 16:47] LABS: ANION GAP 11.5 mmol/L (8-16); CALCIUM 7.3 mg/dL (8.5-10.1); CARBON DIOXIDE 22.8 mmol/L (21.0-32.0); CREATININE - SERUM 4.6 mg/dL (0.6-1.3); POTASSIUM - SERUM 4.3 mmol/L (3.5-5.1)
--- NOTE | 2017-02-24 19:45 | NUR ---
RESUMED CARE OF PT, LYING IN BED RESPIRATIONS EVEN AND UNLABORED ON ROOM AIR. LEFT FOREARM INFUSING NS @ 75. SAM TO GRAVITY. HIP ABDUCTOR REPOSITIONED. NO NEEDS AT THIS TIME, CALL LIGHT IN REACH. WILL CONTINUE TO MONITOR. SEE NURSE ASSESSMENT.
[2017-02-24 20:00] VITALS: BP 119/56
[2017-02-25] VITALS: BP 117/75
--- NOTE | 2017-02-25 01:17 | NUR ---
LYING IN BED WITH EYES CLOSED, CALL LIGHT IN REACH. WILL CONTINUE TO MONITOR.
[2017-02-25 04:00] VITALS: BP 107/57
--- NOTE | 2017-02-25 04:08 | NUR ---
BED BATH AND LINENS CHANGED.
[2017-02-25 06:03] LABS: ANION GAP 12.5 mmol/L (8-16); CARBON DIOXIDE 21.3 mmol/L (21.0-32.0); CREATININE - SERUM 4.3 mg/dL (0.6-1.3); POTASSIUM - SERUM 3.8 mmol/L (3.5-5.1)
[2017-02-25 06:12] LABS: BASOPHILS 0 % (0-2); EOSINOPHILS 0.7 % (0-7); IMMATURE GRANULOCYTES 0.3 % (0-5); LYMPHOCYTES 8.7 % (15-50); MCH 30.2 pg (26.0-34.0); MCHC 34.6 g/dL (31.0-37.0); MCV 87.2 fL (80.0-100.0); MEAN PLATELET VOLUME 10.5 fL (7.4-10.4); MONOCYTES 6.4 % (2-11); NEUTROPHILS 83.9 % (40-80); PLATELET COUNT 355 10x3/uL (130-400); RBC 2.98 10x6/uL (4.20-6.10); WBC 10.3 10x3/uL (4.8-10.8)
--- NOTE | 2017-02-25 06:36 | NUR ---
NO CHANGES FROM PREVIOUS ASSESSMENT, CALL LIGHT IN REACH.
[2017-02-25 07:54] VITALS: BP 102/49
[2017-02-25 11:37] VITALS: BP 105/54
[2017-02-25 15:23] VITALS: BP 111/53
[2017-02-25 20:00] VITALS: BP 112/55
[2017-02-26 04:00] VITALS: BP 120/66
[2017-02-26 05:48] LABS: BASOPHILS 0.2 % (0-2); EOSINOPHILS 1.3 % (0-7); HEMATOCRIT 26.9 % (42.0-54.0); HEMOGLOBIN 9.2 g/dL (13.5-17.5); IMMATURE GRANULOCYTES 0.4 % (0-5); LYMPHOCYTES 13.7 % (15-50); MCH 30.2 pg (26.0-34.0); MCHC 34.2 g/dL (31.0-37.0); MCV 88.2 fL (80.0-100.0); MEAN PLATELET VOLUME 10.6 fL (7.4-10.4); NEUTROPHILS 78.4 % (40-80); PLATELET COUNT 363 10x3/uL (130-400); RBC 3.05 10x6/uL (4.20-6.10); RDW 17.2 % (11.5-14.5); WBC 9.5 10x3/uL (4.8-10.8)
[2017-02-26 06:09] LABS: ANION GAP 13.1 mmol/L (8-16); CALCIUM 7.1 mg/dL (8.5-10.1); CARBON DIOXIDE 20.6 mmol/L (21.0-32.0); CREATININE - SERUM 3.8 mg/dL (0.6-1.3); POTASSIUM - SERUM 3.7 mmol/L (3.5-5.1)
--- NOTE | 2017-02-26 07:00 | NUR ---
INITIAL ROUNDS MADE. PT LYING IN BED RESTING WELL WITH EYES CLOSED, AWAKENED EASILY WHEN NAME CALLED. VOICES NO NEEDS OR C/O AT THIS TIME. CALL LIGHT IN REACH. WILL CONT TO MONITOR.
--- NOTE | 2017-02-26 09:20 | NUR ---
NOTIFIED BY MICRO OF E COLI IN URINE, PLACED PT ON CONTACT ISOLATION
--- NOTE | 2017-02-26 11:42 | NUR ---
RESTING WELL WITH EYES CLOSED, CONT TO MONITOR.
[2017-02-26 14:39] VITALS: BP 135/70
--- NOTE | 2017-02-26 17:23 | NUR ---
REFUSED DINNER, REQUESTED ORANGE JUICE ONLY.
[2017-02-26 20:00] VITALS: BP 139/67
--- NOTE | 2017-02-26 20:00 | NUR ---
PT RESTING IN BED WITH NO DISTRESS. ABDUCTOR PILLOW IN PLACE. IVF NS @ 75ML/HR INFUSING TO LFA. O2 @2 L/NC USED PRN. RESPS NONLABORED. FLACO PATENT TO BEDSIDE DRAIN BAG. SEE SHIFT ASSESSMENT. MONITOR AND CPOC.
--- NOTE | 2017-02-26 21:30 | NUR ---
HS MEDS GIVEN. REQUESTED PAIN PILL GIVEN. CPOC.
[2017-02-27] VITALS: BP 131/64
--- NOTE | 2017-02-27 01:56 | NUR ---
PT RESTING WITH NO DISTRESS. IVF INFUSING. CLEAN/DRY. WAS GIVEN COMPLETE BATH AND LINEN CHANGE EARLIER PER SONAR TECHNICIAN. CPOC.
[2017-02-27 04:00] VITALS: BP 157/78
--- NOTE | 2017-02-27 07:00 | NUR ---
INITIAL ROUNDS MADE. PT SITTING UP IN BED RESTING WELL, NO NEEDS OR C/O VOICED AT THIS TIME. CALL LIGHT IN REACH. WILL CONT TO MONITOR.
[2017-02-27 08:00] VITALS: BP 148/70
--- NOTE | 2017-02-27 08:10 | NUR ---
ASSIST WITH SET UP FOR BREAKFAST. AM MEDS GIVEN CRUSHED IN CHOCOLATE PUDDING REQUESTED.
[2017-02-27 12:00] VITALS: BP 157/74
--- NOTE | 2017-02-27 12:30 | NUR ---
SITTING UP FOR LUNCH. CONT TO MONITOR.
[2017-02-27 16:00] VITALS: BP 145/71
--- NOTE | 2017-02-27 18:32 | NUR ---
SITTING UP IN BED WATCHING TV. DENIES NEEDS OR C/O AT THIS TIME.
[2017-02-27 20:00] VITALS: BP 144/72
--- NOTE | 2017-02-27 20:00 | NUR ---
RESTING IN BED WITH EYES CLOSED. ROUSES EASILY. NS @ 75ML/HR NFUSING TO LFA. SAM PATENT TO BEDSIDE DRAIN BAG. ROOM AIR WITH NONLABORED RESPIRATIONS. ABDUCTOR PILLOW IN PLACE BETWEEN KNEES. RIGHT HIP INCISION. SEE ASSESSMENT. MONITOR AND CPOC.
[2017-02-28 06:06] LABS: BASOPHILS 0.1 % (0-2); EOSINOPHILS 1.2 % (0-7); HEMATOCRIT 27.9 % (42.0-54.0); HEMOGLOBIN 9.4 g/dL (13.5-17.5); IMMATURE GRANULOCYTES 0.5 % (0-5); LYMPHOCYTES 9.2 % (15-50); MCH 29.7 pg (26.0-34.0); MCHC 33.7 g/dL (31.0-37.0); MCV 88.3 fL (80.0-100.0); MEAN PLATELET VOLUME 10.1 fL (7.4-10.4); MONOCYTES 5.4 % (2-11); NEUTROPHILS 83.6 % (40-80); PLATELET COUNT 343 10x3/uL (130-400); RBC 3.16 10x6/uL (4.20-6.10); RDW 16.8 % (11.5-14.5); WBC 10.2 10x3/uL (4.8-10.8)
[2017-02-28 06:23] LABS: CALCIUM 7.3 mg/dL (8.5-10.1); CARBON DIOXIDE 21.9 mmol/L (21.0-32.0)
[2017-02-28 06:54] LABS: ANION GAP 11.1 mmol/L (8-16); CREATININE - SERUM 2.1 mg/dL (0.6-1.3)
[2017-02-28 08:00] VITALS: BP 148/76
[2017-02-28 12:46] VITALS: BP 154/75
--- NOTE | 2017-02-28 14:32 | NUR ---
Nutrition follow-up: Diet: Renal 2 gm sodium PO intake ~25% of meals Labs reviewed Pt would benefit from PEG tube placement and TF due to continued poor po intake. RDN following.
[2017-02-28 16:00] VITALS: BP 148/72
[2017-02-28 20:00] VITALS: BP 133/71
--- NOTE | 2017-02-28 20:13 | NUR ---
RESTING IN BED. ALERT/ORIENTED. C/O WANTING TO "GO TO THE BATROOM" AND STAFF TELL HIM THEY HAVE TO GET HELP TO DO IT. STATES "I AM 105 SOAKING WET AND THEY CANNOT GET ME UP?" EXPLAINED TO PT THAT HE HAD SURGERY ON HIS RIGHT HIP AND HIS RIGHT LEG IS DRAWN UP AND THAT MAKES HIM A FALL RISK AND NO ONE PERSON SHOULD EVER ATTEMPT TO GET HIM UP ALONE. AFTER TALKING TO PT HE WAS CALMER AND AGREED THAT HE HAD FORGOTTEN HE WAS NOT ABLE TO STAND ON HIS RIGHT LEG AT THIS TIME. PIV TO LFA WITH D5W @ 50ML/HR. NONLABORED RESPIRATIONS ON ROOM AIR. SEE ASSESSMEMT. CPOC.
--- NOTE | 2017-02-28 21:16 | NUR ---
PT PULLED UP/REPOSITIONED AND ABDUCTOR PILLOW PLACED BETWEEN KNEES. REQUESTED PAIN PILL WITH BEDTIME MEDS.
--- NOTE | 2017-02-28 21:55 | NUR ---
BEDTIME MEDS GIVEN CRUSHED IN CHOCOLATE PUDDING. PT CLEAN/DRY. FLACO PATENT. IVF INFUSING. STATES HE IS COMFORTABLE. CALL LIGHT IN REACH. CPOC.
--- NOTE | 2017-03-01 03:28 | NUR ---
PT RESTING WITH EYES CLOSED. IVF INFUSING. ABDUCTOR PILLOW IN PLACE. NO DISTRESS.
[2017-03-01 04:00] VITALS: BP 140/71
[2017-03-01 04:39] LABS: BASOPHILS 0.1 % (0-2); EOSINOPHILS 2.4 % (0-7); HEMATOCRIT 25.7 % (42.0-54.0); HEMOGLOBIN 8.7 g/dL (13.5-17.5); IMMATURE GRANULOCYTES 0.3 % (0-5); LYMPHOCYTES 9.3 % (15-50); MCHC 33.9 g/dL (31.0-37.0); MCV 88.6 fL (80.0-100.0); MEAN PLATELET VOLUME 10.3 fL (7.4-10.4); MONOCYTES 5.1 % (2-11); NEUTROPHILS 82.8 % (40-80); PLATELET COUNT 294 10x3/uL (130-400); RDW 16.8 % (11.5-14.5); WBC 11.8 10x3/uL (4.8-10.8)
[2017-03-01 05:02] LABS: ANION GAP 9.1 mmol/L (8-16); CALCIUM 7.1 mg/dL (8.5-10.1); CARBON DIOXIDE 22.9 mmol/L (21.0-32.0); CREATININE - SERUM 1.7 mg/dL (0.6-1.3)
--- NOTE | 2017-03-01 05:45 | NUR ---
AM CHLORIDE 116, IMPROVEMENT FROM YESTERDAY OF 117
--- NOTE | 2017-03-01 06:04 | NUR ---
PT RESTING WITH NO DISTRESS. AM PROTONIX GIVEN. SAM CARE GIVEN. ABDUCTOR PILLOW IN PLACE. CPOC.
[2017-03-01 11:00] VITALS: BP 146/67
[2017-03-01 12:43] VITALS: BP 154/74
--- NOTE | 2017-03-01 13:09 | NUR ---
Patient Name: NIHARIKA STEWART Admission Status: ER Accout number: [id number] Admission Date: 02-24-2017 : 1945 Admission Diagnosis: Attending: MALISSA Current LOS: 5 Anticipated DC Date: Planned Disposition: Prison Facility Primary Insurance: MEDICARE A & B PLANNED EXTERNAL PROVIDER: [facility] Discharge Planning Comments: * Is the patient Alert and Oriented? Yes 0 * How many steps to enter\exit or inside your home? 1 0 * PCP DR. JOHNSON 0 * Pharmacy [facility] 0 * Preadmission Environment Prison Facility 0 * Facility Name [facility] 0 * ADLs Partial Dependent 0 * Partial ADLs (Assistance needed) Ambulation Bathing Dressing Medication Management Toileting Transfers 0 * Equipment Other 0 * Other Equipment ALL MEDICAL EQUIPMENT PROVIDED BY [facility] 0 * List name and contact numbers for known caregivers / representatives who currently or will assist patient after discharge: NOHEMI LUQUE, FRIEND, 0 * Community resources currently utilized None 0 * Please name any agencies selected above. NONE 0 * Additional services required to return to the preadmission environment? No 0 * Can the patient safely return to the preadmission environment? Yes 0 * Has this patient been hospitalized within the prior 30 days at any hospital? No 0 CM MET WITH PT IN ROOM TO DISCUSS DISCHARGE PLANNING AND NEEDS. PT REPORTS HAVING A HOME WHERE HE LIVED ALONE AND INDEPENDENTLY UNTIL GOING TO [place] FOR REHAB AFTER A FALL AT HOME. PT USED A CANE ONLY AT HOME WITH NO MEDICAL EQUIPMENT PROVIDER. CM DISCUSSED AVAILABILITY OF REHAB, HOME HEALTH AND MEDICAL EQUIPMENT. PT REPORTS PLAN TO RETURN TO [facility] FOR CONTINUED REHAB AT DISCHARGE. IMPORTANT MESSAGE FROM MEDICARE PROVIDED AND EXPLAINED. CM CALLED [facility], , SPOKE TO MEHRAN WHO REPORTS PT IS IN SKILLED BED AND WILL RETURN TO REHAB WHEN STABLE. CM FAXED HOSPITAL UPDATE TO [facility] AT [phone]. FOR DISCHARGE, FAX DISCHARGE INFORMATION TO [phone]. NURSE REPORT TO BE CALLED TO [facility], . [facility] TO ARRANGE VAN TRANSPORT. Supervisor Functional Testing: Hardy Orantes
--- NOTE | 2017-03-01 13:53 | NUR ---
Nutrition follow-up: PO intake of regular diet continues to be poor. Megace ES started; pt already taking Remeron. RDN will order Ensure with meals Following.
[2017-03-01 16:50] VITALS: BP 148/72
[2017-03-01 19:56] VITALS: BP 136/64
--- NOTE | 2017-03-01 20:19 | NUR ---
PT RESTING IN BED. IVF D5W @ 50ML/HR INFUSING TO LFA. ABDUCTOR PILLOW IN PLACE. RIGHT HIP HEALING INCISION. RED SCROTUM. TURNED FOR COMFORT. SEE ASSESSMENT. CPOC.
[2017-03-02 00:17] VITALS: BP 120/60
[2017-03-02 04:00] VITALS: BP 123/59
[2017-03-02 06:07] LABS: BASOPHILS 0.1 % (0-2); EOSINOPHILS 1.7 % (0-7); HEMATOCRIT 27.7 % (42.0-54.0); HEMOGLOBIN 9.3 g/dL (13.5-17.5); IMMATURE GRANULOCYTES 0.3 % (0-5); LYMPHOCYTES 11.8 % (15-50); MCH 29.9 pg (26.0-34.0); MCHC 33.6 g/dL (31.0-37.0); MCV 89.1 fL (80.0-100.0); MONOCYTES 4.6 % (2-11); NEUTROPHILS 81.5 % (40-80); PLATELET COUNT 292 10x3/uL (130-400); RBC 3.11 10x6/uL (4.20-6.10); RDW 17.1 % (11.5-14.5); WBC 10.9 10x3/uL (4.8-10.8)
[2017-03-02 06:24] LABS: ANION GAP 7.9 mmol/L (8-16); CALCIUM 7.2 mg/dL (8.5-10.1); CARBON DIOXIDE 25.8 mmol/L (21.0-32.0); CREATININE - SERUM 1.5 mg/dL (0.6-1.3)
[2017-03-02 06:26] LABS: POTASSIUM - SERUM 2.7 mmol/L (3.5-5.1)
[2017-03-02 08:00] VITALS: BP 134/63
--- NOTE | 2017-03-02 10:25 | NUR ---
TELEMETRY SR. PT AT FOR EVALUATION. IV PATENT. SAM INTACT. WILL CONT. PLAN OF CARE.
[2017-03-02 12:00] VITALS: BP 127/64
--- NOTE | 2017-03-02 13:42 | NUR ---
RANGE OF MOTION WITH PT.
[2017-03-02 16:00] VITALS: BP 119/61
--- NOTE | 2017-03-02 16:18 | NUR ---
Patient Name: NIHARIKA STEWART Encounter No: [id number] : 1945 Primary Insurance: MEDICARE A & B Anticipated DC Date: Planned Disposition: Intermediate Facility External Planned Provider: [facility], MEDICARE REHAB BED DCP follow-up note: CM RECEIVED CALL FROM [facility], , SPOKE TO MEHRAN WHO REPORTS PT WILL NEED INSURANCE AUTHORIZATION TO RETURN TO REHAB AT DISCHARGE. CM FAXED REFERRAL FOR REHAB TO ASSIST WITH INSURANCE AUTHORIZATION TO [facility] AT [phone]. CM WAITING INSURANCE AUTHORIZATION FOR REHAB AND MEDICAL STABILITY FOR DISCHARGE. FOR DISCHARGE, FAX DISCHARGE INFORMATION TO [phone]. NURSE REPORT TO BE CALLED TO [facility], . [facility] TO [facility]RANGE [facility]AN TRANSPORT. Maintenance Aide: Hardy Orantes
--- NOTE | 2017-03-02 17:20 | NUR ---
IV K+ [address] SINGLETON. K+ ORDERED FOR 2000
--- NOTE | 2017-03-02 19:00 | NUR ---
RECEIVED REPORT AND ASSUMED PT CARE FROM DAY SHIFT NURSE @ THIS TIME.
--- NOTE | 2017-03-02 20:07 | NUR ---
K+ RESULTS 4.1. NO FURTHER INTERVENTION REQUIRED PER ELECTROLYTE PROTOCOL.
--- NOTE | 2017-03-02 21:30 | NUR ---
PT RESITED WITH 20 GA ANGIOCATH X1 STICK TO LEFT WRIST AREA. PT TOLERATED WELL. DRESSING PER POLICY. IVF'S RESTARTED PER ORDERS. WILL CONT TO MONITOR.
[2017-03-02 21:52] VITALS: BP 120/57
[2017-03-03 06:10] VITALS: BP 147/73
[2017-03-03 06:11] LABS: BASOPHILS 0.1 % (0-2); EOSINOPHILS 2.1 % (0-7); HEMATOCRIT 26.7 % (42.0-54.0); HEMOGLOBIN 8.9 g/dL (13.5-17.5); IMMATURE GRANULOCYTES 0.6 % (0-5); LYMPHOCYTES 12.7 % (15-50); MCH 29.7 pg (26.0-34.0); MCHC 33.3 g/dL (31.0-37.0); MEAN PLATELET VOLUME 10.9 fL (7.4-10.4); MONOCYTES 5.7 % (2-11); NEUTROPHILS 78.8 % (40-80); PLATELET COUNT 284 10x3/uL (130-400); RDW 17.3 % (11.5-14.5)
[2017-03-03 06:25] LABS: ANION GAP 8.5 mmol/L (8-16); CALCIUM 7.4 mg/dL (8.5-10.1); CARBON DIOXIDE 24.8 mmol/L (21.0-32.0); CREATININE - SERUM 1.4 mg/dL (0.6-1.3); MAGNESIUM - SERUM 1.5 mg/dL (1.8-2.4); POTASSIUM - SERUM 3.3 mmol/L (3.5-5.1)
--- NOTE | 2017-03-03 07:30 | NUR ---
RECEIVED PT IN BED EYES CLOSED RESP UNLABORED NAD NOTED
[2017-03-03 12:00] VITALS: BP 133/70
--- NOTE | 2017-03-03 13:55 | NUR ---
Nutrition Follow Up: Pt reported that his appetite is not very good. He said that he has not had a good appetite for a while. Pt stated that he is eating the same amount here that he does at home. He said that he does not like Ensure and has not been drinking it. Pt is eating 29% meal avg on a renal diet. He is receiving Proteinex. No new wt. +BM 03/02/17. Labs reviewed. Meds noted including Megace, Remeron. Rec consider liberalizing diet to encourage po intake. Will continue to provide selective menus and honor food preferences within diet ordered by MD. YOON following.
--- NOTE | 2017-03-03 16:31 | NUR ---
Patient Name: NIHARIKA STEWART Encounter No: [id number] : 1945 Primary Insurance: MEDICARE A & B Anticipated DC Date: 03-04-2017 Planned Disposition: Senior Care Facility External Planned Provider: [facility], MEDICARE REHAB BED DCP follow-up note: KATIUSKA SPOKE TO DR. JOHNSON WHO INFORMED CM THAT PT IS STABLE FOR DISCHARGE BACK TO [facility]. CM SPOKE TO PT WHO IS IN AGREEMENT WITH DISCHARGE PLAN. KATIUSKA CALLED MEHRAN AT [facility], , KATIUSKA WAS ADVISED THAT MEHRAN HAS SUBMITTED FOR INSURANCE AUTHORIZATION BUT NOT RECEIVED OF THIS TIME. NOTIFIED. KATIUSKA FAXED UPDATE TO [facility] AT [phone]. KATIUSKA WAITING INSURANCE AUTHORIZATION FROM PT'S INSURANCE FOR RETURN TO [facility]. Furnace Setter: Hardy Orantes
--- NOTE | 2017-03-03 19:30 | NUR ---
RECEIVED REPORT, WILL ASSUME CARE OF PT, PT SLEEPING, BED IS LOW, SRX2, CALL LIGHT IN REACH, WILL CONTINUE PLAN OF CARE
[2017-03-03 20:00] VITALS: BP 128/70
--- NOTE | 2017-03-03 23:43 | NUR ---
ASSESSMENT COMPLETE, SEE FLOWSHEET, BED IS LOW, SRX2, BED ALARM IS ON, CALL LIGHT IN REACH, WILL CONTINUE PLAN OF CARE
[2017-03-04] VITALS: BP 137/67
[2017-03-04 04:00] VITALS: BP 132/63
[2017-03-04 06:24] LABS: BASOPHILS 0.1 % (0-2); EOSINOPHILS 1.8 % (0-7); HEMATOCRIT 26.8 % (42.0-54.0); IMMATURE GRANULOCYTES 0.5 % (0-5); LYMPHOCYTES 9.7 % (15-50); MCH 29.9 pg (26.0-34.0); MCHC 33.6 g/dL (31.0-37.0); MEAN PLATELET VOLUME 10.9 fL (7.4-10.4); MONOCYTES 5.1 % (2-11); NEUTROPHILS 82.8 % (40-80); PLATELET COUNT 265 10x3/uL (130-400); RBC 3.01 10x6/uL (4.20-6.10); RDW 17.1 % (11.5-14.5); WBC 12.2 10x3/uL (4.8-10.8)
[2017-03-04 06:48] LABS: ANION GAP 9.9 mmol/L (8-16); CALCIUM 7.3 mg/dL (8.5-10.1); CARBON DIOXIDE 21.6 mmol/L (21.0-32.0); CREATININE - SERUM 1.2 mg/dL (0.6-1.3); POTASSIUM - SERUM 3.5 mmol/L (3.5-5.1)
--- NOTE | 2017-03-04 07:09 | NUR ---
PT LAYING FLAT SLEEPING NO S/S DISTRESS NOTED RR EVEN AND UNLABORED. WILL CONT TO MONITOR
[2017-03-04 07:41] LABS: MAGNESIUM - SERUM 1.5 mg/dL (1.8-2.4); PHOSPHOROUS 2.4 mg/dL (2.5-4.9)
[2017-03-04 08:58] VITALS: BP 136/66
[2017-03-04 11:55] VITALS: BP 130/64
--- NOTE | 2017-03-04 13:31 | NUR ---
Patient Name: NIHARIKA STEWART Encounter No: [id number] : 1945 Primary Insurance: MEDICARE A & B Anticipated DC Date: 03-04-2017 Planned Disposition: Prison Facility External Planned Provider: [facility], MEDICARE REHAB BED DCP follow-up note: CM CALLED MEHRAN AT [facility], , CM WAS ADVISED THAT MEHRAN HAS SUBMITTED FOR INSURANCE AUTHORIZATION BUT NOT RECEIVED OF THIS TIME. PT IS OUT OF MEDICARE DAYS AND INSURANCE IS COVERING CUSTODIAL CARE, WHICH REQUIRES THE INSURANCE PREAUTHORIZATION. CM WAITING INSURANCE AUTHORIZATION FROM PT'S INSURANCE FOR RETURN TO [facility]. Anime Designer: Hardy Orantes
--- NOTE | 2017-03-04 18:10 | NUR ---
PT SITTING UP IN BED SLEEPING NO S/S DISTRESS NOTED RR EVEN AND UNLABORED
--- NOTE | 2017-03-04 19:50 | NUR ---
PT IS RESTING IN BED WATCHING TV. ALERT AND ORIENTED X 3. HE VOICED COMPLAINT OF BEING INC. OF URINE AT THIS TIME. ANT CARE AND PAD CHANGE DONE. IV IS INFUSING TO LEFT HAND WITHOUT DIFFICULTY. NO REDNESS OR EDEMA NOTED AT THE INSERTION SITE. INCISION TO RIGHT HIP IS CDI. NO DRAINAGE NOTED. SAM CATH IS PATENT AND DRAINING TO A GRAVITY BAG. ISOLATION PRECAUTIONS OBSERVED. O2 IS ON @ 2LPM PER NC. NO SOB NOTED.
[2017-03-04 20:00] VITALS: BP 123/67
--- NOTE | 2017-03-04 22:01 | NUR ---
PT RANG CALL LIGHT TO SAY HE ACCIDENTALLY BUMPED HIS IV. IV NOTED TO BE OUT OF HAND. NO BLEEDING NOTED. I ATTEMPTED TO RESITE IV X 3 STICKS. ALL 3 SITES BLEW UPON NEEDLE INSERTION. CHARGE NURSE REQUESTED TO RESITE PT.
[2017-03-04 23:58] VITALS: BP 125/73
--- NOTE | 2017-03-05 00:09 | NUR ---
RESTING IN BED WITH EYES CLOSED.
--- NOTE | 2017-03-05 03:00 | NUR ---
BED BATH GIVEN BY BUILDING PRESSURE WASHER. ABDUCTOR WEDGE NOTED TO HAVE A LARGE AMOUNT OF STOOL SOAKED INTO THE FOAM. PILLOW DISCARDED, AND REGULAR PILLOW USED UNTIL A NEW ONE CAN BE PROCURED IN AM.
[2017-03-05 04:00] VITALS: BP 131/69
[2017-03-05 05:43] LABS: BASOPHILS 0.1 % (0-2); EOSINOPHILS 1.4 % (0-7); HEMOGLOBIN 9.1 g/dL (13.5-17.5); IMMATURE GRANULOCYTES 0.4 % (0-5); LYMPHOCYTES 8.4 % (15-50); MCHC 33.7 g/dL (31.0-37.0); MCV 89.1 fL (80.0-100.0); MEAN PLATELET VOLUME 11.1 fL (7.4-10.4); MONOCYTES 5.7 % (2-11); PLATELET COUNT 250 10x3/uL (130-400); RBC 3.03 10x6/uL (4.20-6.10); RDW 16.9 % (11.5-14.5)
[2017-03-05 06:15] LABS: ANION GAP 11.6 mmol/L (8-16); CALCIUM 7.4 mg/dL (8.5-10.1); CREATININE - SERUM 1.2 mg/dL (0.6-1.3); MAGNESIUM - SERUM 1.5 mg/dL (1.8-2.4); PHOSPHOROUS 2.9 mg/dL (2.5-4.9); POTASSIUM - SERUM 3.6 mmol/L (3.5-5.1)
--- NOTE | 2017-03-05 07:05 | NUR ---
PT IN BED RESTING. EVEN AND UNLABORED RESPIRATIONS NOTED. WILL CONTINUE TO MONITOR.
--- NOTE | 2017-03-05 09:31 | NUR ---
DURING MEDICATION ADMINSTRATION I WAS GIVING THE PTs MEDICATIONS CRUSHED IN PUDDING REQUESTED BY PT. AFTER A FEW SPOONFULS HE SPAT SOME OF THE PUDDING OUT. STATING "ITS TOO MUCH"
[2017-03-05 09:34] VITALS: BP 140/71
--- NOTE | 2017-03-05 09:39 | NUR ---
RESP UL ON . SAM INTACT. ISOLATION PRECAUTIONS CONT. WILL MONITOR NEEDS.
[2017-03-05 12:38] VITALS: BP 140/68
[2017-03-05 16:48] VITALS: BP 123/64
--- NOTE | 2017-03-05 19:30 | NUR ---
RECEIVED REPORT, WILL ASSUME CARE OF PT, PT SLEEPING, BED IS LOW, SRX2, CALL LIGHT IN REACH, WILL CONTINUE PLAN OF CARE
[2017-03-05 20:00] VITALS: BP 120/62
[2017-03-06] VITALS: BP 132/63
[2017-03-06 04:00] VITALS: BP 129/63
--- NOTE | 2017-03-06 04:06 | NUR ---
ASSESSMENT COMPLETE, SEE FLOWSHEET, BED IS LOW, SRX2,BED ALARM IS ON, CALL LIGHT IN REACH, WILL CONTINUE PLAN OF CARE
[2017-03-06 07:14] LABS: BASOPHILS 0.1 % (0-2); EOSINOPHILS 0.1 % (0-7); HEMATOCRIT 24.5 % (42.0-54.0); HEMOGLOBIN 8.3 g/dL (13.5-17.5); IMMATURE GRANULOCYTES 0.2 % (0-5); LYMPHOCYTES 14.2 % (15-50); MCH 29.9 pg (26.0-34.0); MCHC 33.9 g/dL (31.0-37.0); MCV 88.1 fL (80.0-100.0); MEAN PLATELET VOLUME 10.4 fL (7.4-10.4); MONOCYTES 6.5 % (2-11); NEUTROPHILS 78.9 % (40-80); PLATELET COUNT 231 10x3/uL (130-400); RBC 2.78 10x6/uL (4.20-6.10); RDW 16.7 % (11.5-14.5); WBC 8.4 10x3/uL (4.8-10.8)
[2017-03-06 07:24] LABS: ANION GAP 9.6 mmol/L (8-16); CALCIUM 7.3 mg/dL (8.5-10.1); CARBON DIOXIDE 23.6 mmol/L (21.0-32.0); CREATININE - SERUM 1.2 mg/dL (0.6-1.3); MAGNESIUM - SERUM 1.6 mg/dL (1.8-2.4); POTASSIUM - SERUM 3.2 mmol/L (3.5-5.1)
--- NOTE | 2017-03-06 07:29 | NUR ---
PT IN BED. AROUSES TO VOICE. DENIES NEEDS AT THIS TIME. WILL CONITNUE TO MONITOR
[2017-03-06 08:00] VITALS: BP 128/61
--- NOTE | 2017-03-06 10:06 | NUR ---
UP IN CHAIR WITH CALL LIGHT IN REACH. RESP UL ON . FLACO INTACT. ISOLATION PRECAUTIONS CONT. WILL MONITOR NEEDS.
[2017-03-06 12:00] VITALS: BP 127/67
[2017-03-06 16:00] VITALS: BP 126/71
[2017-03-06 16:56] LABS: % SATURATION 26 % (15-55); TOTAL IRON BIND CAPACITY 60 ug/dl (260-445)
[2017-03-06 17:02] LABS: UNSAT IRON BIND CAPACITY 44 ug/dl (150-375)
[2017-03-06 17:03] LABS: IRON 16 ug/dl (35-150)
[2017-03-06 20:00] VITALS: BP 120/57
--- NOTE | 2017-03-06 20:00 | NUR ---
ALERT AND ORIENTED X4. RT ARM AND LEG CONTRACTED. WEDGE PLACED PER ORDER. REFUSE FOR STRAPS ON RIGHT LEG. DENIES ANY NEEDS. LIGHTS TURNED OUT PER ORDER. CONTINUE PLAN OF CARE. BED LOCKED AND LOW. CALL LIGHT IN REACH. TWO SIDERAILS UP. RECIEVES LOVENOX INJ. NO SCDs.
--- NOTE | 2017-03-07 03:16 | NUR ---
SLEEPING IN BED. LIGHTS OFF. NO SIGNS OF DISTRESS. SAM DRAINING BY GRAVITY AT SIDE OF BED. CONTINUE PLAN OF CARE. BED LOCKED AND LOW. CALL LIGHT IN REACH. TWO SIDERAILS UP.
[2017-03-07 06:12] LABS: BASOPHILS 0.1 % (0-2); EOSINOPHILS 1.1 % (0-7); HEMATOCRIT 24.3 % (42.0-54.0); HEMOGLOBIN 8.2 g/dL (13.5-17.5); IMMATURE GRANULOCYTES 0.5 % (0-5); LYMPHOCYTES 16.4 % (15-50); MCH 29.8 pg (26.0-34.0); MCHC 33.7 g/dL (31.0-37.0); MCV 88.4 fL (80.0-100.0); MONOCYTES 7.6 % (2-11); NEUTROPHILS 74.3 % (40-80); PLATELET COUNT 246 10x3/uL (130-400); RBC 2.75 10x6/uL (4.20-6.10); RDW 16.9 % (11.5-14.5); WBC 8.5 10x3/uL (4.8-10.8)
[2017-03-07 06:29] LABS: ANION GAP 9.4 mmol/L (8-16); CALCIUM 7.2 mg/dL (8.5-10.1); CARBON DIOXIDE 24.1 mmol/L (21.0-32.0); CREATININE - SERUM 1.3 mg/dL (0.6-1.3); POTASSIUM - SERUM 3.5 mmol/L (3.5-5.1)
--- NOTE | 2017-03-07 07:38 | NUR ---
AM ROUNDS- PT IN BED, WITH EYES CLOSED. PT ON 2L NC, LT FA IV SL AT THIS TIME. CALL LIGHTIN REACH, BED LOW AND WHEELS LOCKED, BEDSIDE RAILS X2. NAD NOTED, WILL CONTINUE TO MONITOR.
[2017-03-07 08:00] VITALS: BP 131/66
--- NOTE | 2017-03-07 09:38 | NUR ---
AM MEDS GIVEN AT THIS TIME. PT REFUSED NICOTINE PATCH. DENIES ANY NEEDS AT THIS TIME. CALL LIGHT IN REACH, NAD NOTED, WILL CONTINUE TO MONITOR.
--- NOTE | 2017-03-07 11:02 | NUR ---
Patient Name: NIHARIKA STEWART Encounter No: [id number] : 1945 Primary Insurance: MEDICARE A & B Anticipated DC Date: 03-07-2017 Planned Disposition: [facility] External Planned Provider: [facility], [employer] INS[employer] [facility] BED DCP follow-up note: CM RECEIVED CALL FROM MEHRAN OF [facility], , INSURANCE AUTHORIZATION RECEIVED AND [facility] CAN [facility] WELL[facility] COORDINATOR PT TODAY BY VAN. CM SPOKE TO PT IN ROOM WHO IS IN AGREEMENT WITH DISCHARGE BACK TO REHAB AT [facility] TODAY. IMPORTANT MESSAGE FROM MEDICARE PROVIDED AND DISCUSSED. CM SPOKE TO DR. TATE WHO ADVISED CM THAT DR. JOHNSON IS SEEING THIS PT. CM PAGED DR. JOHNSON. FOR DISCHARGE, FAX DISCHARGE INFORMATION TO [phone]. NURSE REPORT TO BE CALLED TO [facility], . [facility] TO ARRANGE VAN TRANSPORT. [employer] Manager: Hardy Orantes
--- NOTE | 2017-03-07 11:35 | NUR ---
PT UP TO CHAIR, DENIES ANY NEEDS AT THIS TIME. CALL LIGHT IN REACH, NAD NOTED, WILL CONTINUE TO MONITOR.
[2017-03-07 12:00] VITALS: BP 100/51
[2017-03-07] MEDS ORDERED: MEGACE ES625 MG/5 M PO (13:05)
[2017-03-07] MEDS ORDERED: NICODERM C1 PATCH .1 TRANSDERM (13:07)
[2017-03-07] MEDS ORDERED: K-DUR20 MEQ PO (13:10)
--- NOTE | 2017-03-07 15:51 | NUR ---
Patient Name: NIHARIKA STEWART Encounter No: [id number] : 1945 Primary Insurance: MEDICARE A & B Anticipated DC Date: 03-07-2017 Planned Disposition: Senior Care Facility External Planned Provider: [facility], [employer] [facility] DCP follow-up note: CM RECEIVED DISCHARGE ORDER, FAXED DISCHARGE INFORMATION TO [phone]. CM CALLED MEHRAN AT [facility] WHO SCHEDULED VAN FOR 1800 HOURS. MANAGER OF CASE MANAGEMENT AND PT NOTIFIED. NURSE REPORT TO BE CALLED TO [facility], . [facility] VAN TRANSPORT ARRANGED FOR 1800 HOURS THIS EVENING. Cardiology Manager: Hardy Orantes
[2017-03-07 16:00] VITALS: BP 131/64
--- NOTE | 2017-03-07 16:11 | NUR ---
REPORT GIVEN TO SESAR BATEMAN WHO WILL BE TAKING CARE OF PT AT [facility].
--- NOTE | 2017-03-07 17:10 | NUR ---
PROVIDED VERBAL AND WRITTEN DISCHARGE TEACHING TO PT. PT VERBALIZED UNDERSTANDING REGARDING TEACHING. WAITING ON [facility] VAN TO PICK PT UP.
[2017-03-08 09:15] LABS: FOLATE (FOLIC ACID) - SERUM 3.6 ng/mL (>3.0)
== END 2017-03-07 19:06 | DRG 698 ==
LOC: D.ER 23:05 → D.M2 02-24 00:58
PROVIDERS: Emergency Medicine; Family Medicine; Internal Medicine; ADMIT Family Medicine
DX: T83.511A Infection and inflammatory reaction due to indwelling urethral catheter, initial encounter (principal); E43 Unspecified severe protein-calorie malnutrition; G93.41 Metabolic encephalopathy; N17.9 Acute kidney failure, unspecified; R64 Cachexia; B96.20 Unspecified Escherichia coli [E. coli] as the cause of diseases classified elsewhere; I12.9 Hypertensive chronic kidney disease with stage 1 through stage 4 chronic kidney disease, or unspecified chronic kidney disease; N18.3 Chronic kidney disease, stage 3 (moderate); E86.0 Dehydration; Z68.21 Body mass index [BMI] 21.0-21.9, adult; E87.6 Hypokalemia; Z74.09 Other reduced mobility; D64.9 Anemia, unspecified; Z86.73 Personal history of transient ischemic attack (TIA), and cerebral infarction without residual deficits; F32.9 Major depressive disorder, single episode, unspecified; Y84.6 Urinary catheterization as the cause of abnormal reaction of the patient, or of later complication, without mention of misadventure at the time of the procedure

== ENCOUNTER 2017-03-28 11:24 | Inpatient (IN) | payer MEDICARE, OTHER ==
[~2017-03-28] VITALS: Ht 162.6 cm; Wt 59.0 kg
[~2017-03-28 11:24] MED LIST changes: +FUROSEMIDE20 MG PO; +HYDROCODON-ACE1 EAC7 PO; +LOVENOX30 MG/0.3 SC; +MEGACE ES625 MG/5 M PO; +METOPROLOL TART25 MG PO; +REMERON15 MG PO
[2017-03-28 13:45] LABS: BASOPHILS 0.1 % (0-2); EOSINOPHILS 0 % (0-7); HEMATOCRIT 27.2 % (42.0-54.0); HEMOGLOBIN 8.7 g/dL (13.5-17.5); IMMATURE GRANULOCYTES 0.3 % (0-5); LYMPHOCYTES 10.3 % (15-50); MCH 29.2 pg (26.0-34.0); MCV 91.3 fL (80.0-100.0); MEAN PLATELET VOLUME 10.7 fL (7.4-10.4); MONOCYTES 5.4 % (2-11); NEUTROPHILS 83.9 % (40-80); PLATELET COUNT 247 10x3/uL (130-400); RBC 2.98 10x6/uL (4.20-6.10); WBC 16.8 10x3/uL (4.8-10.8)
[2017-03-28 14:17] LABS: ALBUMIN 1.6 g/dL (3.4-5.0); ANION GAP 19.5 mmol/L (8-16); BILIRUBIN - TOTAL 0.6 mg/dL (0.2-1.3); CALCIUM 7.6 mg/dL (8.5-10.1); CARBON DIOXIDE 18.4 mmol/L (21.0-32.0); CREATININE - SERUM 4.5 mg/dL (0.6-1.3); POTASSIUM - SERUM 3.9 mmol/L (3.5-5.1); PROTEIN - SERUM 6.8 g/dL (6.4-8.2)
--- NOTE | 2017-03-28 20:05 | NUR ---
RECEIVED REPORT OF PT. PT RESTING IN BED ON RIGHT SIDE. RIGHT LEG IS CONSTRICTED IN AN UPRIGHT BENT POSITON. PT DOES NOT VERBALIZE VERY WELL. VOICE GARBLED AND QUITE. PT IS A&O. MOUTH IS VERY DRY. FAINT ODOR THAT SMELL OF YEAST COMING FROM MOUTH. VERBAL ORDER FROM ALEX HOOKER FOR NYSTATIN ORAL 5ML SWISH AND SWALLOW TID. PT HAS IV ON LEFT HAND, PATENT, CDI. REPOSITONED PT TO BACK AND USED HIS ABDUCTOR PILLOW RO SUPPORT THE RIGHT LEG. PT DENIES ANY NEEDS. NO S/S OF DISTRESS. WILL CPOC
[2017-03-29] VITALS (7 sets, daily range): BP systolic 117–127; BP diastolic 48–65; Ht 162.6 cm; Wt 59.0 kg
--- NOTE | 2017-03-29 00:20 | NUR ---
ORAL CARE DONE. 50ML OF THICKENED WATER GIVEN TO PT. USED THICK WATER BECAUSE PT HAS A HYPEREXTENDED NECK AND THERE WAS CONCERN OF ASPIRATION. PT TOLERATED WELL. REPOSITONED PT TO TILT TO RIGHT SIDE USING PILLOW. ATTEMPTED TO TILT TO LEFT SIDE, PT DID NOT TOLERATE. INCREASE OF PAIN AND PT CRYING OUT, PT RESTING ON RIGHT SIDE, RESPIRATIONS EVEN AND UNLABORED, SHALLOW. PT DENIES ANY NEEDS. NO S/S OF DISTRESS. WILL CPOC
--- NOTE | 2017-03-29 03:11 | NUR ---
ORAL CARE DONE. WATER OFFERED AND TOLERATED. PT STATES THE WATER AND ORAL CARE IS HELPING HIS MOUTH. PT DENIES ANY NEEDS. NO S/S OF DISTRESS. BED LOW AND CALL LIGHT WITHIN REACH. WILL CPOC
[2017-03-29] MEDS ORDERED: CYCLOBENZAPRINE10 MG PO (04:54)
[2017-03-29] MEDS ORDERED: MAGIC CUP PO (04:56)
[2017-03-29] MEDS ORDERED: NYSTATIN1 PWD TOPICAL (04:58)
[2017-03-29 06:24] LABS: CALCIUM 7.8 mg/dL (8.5-10.1); CARBON DIOXIDE 17.6 mmol/L (21.0-32.0); CREATININE - SERUM 4.9 mg/dL (0.6-1.3); POTASSIUM - SERUM 3.7 mmol/L (3.5-5.1)
[2017-03-29 06:29] LABS: ANION GAP 23.1 mmol/L (8-16)
--- NOTE | 2017-03-29 07:00 | NUR ---
REPORT RECIVED FROM OFF GOING NURSE. PT HAS A CONTRANTED RIGHT LEG AND INGUINAL HERNIA TO LEFT SIDE. WAS GIVEN IN REPORT THAT PT HAS NOT VOIDED AND THAT THE ER TOOK OUT HIS FC LAST NIGHT. BLADDER SCANNER SHOWS 273ML. DENIES HAVING TO URINIATE. CALL LIGHT IN REACH. WILL CONT POC.
--- NOTE | 2017-03-29 08:00 | NUR ---
BLADDER SCANNER SHOWS 270 ML OF URNINE.
[2017-03-29 10:43] LABS: BASOPHILS 0.1 % (0-2); EOSINOPHILS 0.1 % (0-7); HEMATOCRIT 28.6 % (42.0-54.0); HEMOGLOBIN 9.3 g/dL (13.5-17.5); IMMATURE GRANULOCYTES 0.3 % (0-5); LYMPHOCYTES 7.4 % (15-50); MCH 28.9 pg (26.0-34.0); MCHC 32.5 g/dL (31.0-37.0); MCV 88.8 fL (80.0-100.0); MEAN PLATELET VOLUME 11.7 fL (7.4-10.4); MONOCYTES 5.4 % (2-11); NEUTROPHILS 86.7 % (40-80); PLATELET COUNT 273 10x3/uL (130-400); RBC 3.22 10x6/uL (4.20-6.10); RDW 16.9 % (11.5-14.5); WBC 19.3 10x3/uL (4.8-10.8)
[2017-03-29 11:57] LABS: CKMB 9.8 U/L (0.0-3.6); CREATINE KINASE 736 UL (21-232); PRO BNP 3579 pg/mL (0-125); TROPONIN-I 0.046 ng/mL (0.000-0.060)
--- NOTE | 2017-03-29 14:00 | NUR ---
ULTRA SOUND TECH AT BED SIDE. STATED THERE WAS 220ML OF URINE IN BLADDER. PT DENIES HAVING TO VOID. CALL LIGHT IN REACH. WILL CONT POC
[2017-03-29 18:05] LABS: CREATINE KINASE 682 UL (21-232)
[2017-03-29 18:08] LABS: CKMB 6.9 U/L (0.0-3.6)
--- NOTE | 2017-03-29 18:45 | NUR ---
REPORT GIVEN TO OFF GOING NURSE. PT BREATHING NORMAL AND UNALBORED. CALL LIGHT INR EACH. WILL CONT POC
--- NOTE | 2017-03-29 20:30 | NUR ---
MD MACE PAGED AND EXPLAINED ABOUT HIS ANURIA. STATED IF HIS BLADDER SCAN SHOWS MORE THAN 400. INSERT A FC.
--- NOTE | 2017-03-29 20:31 | NUR ---
AWARE OF ANURIA. NAKITA STATED THAT IF THE BLADDER SCANNER SHOWS MORE THAN 400ML, TO INSERT A FC.
[2017-03-30] VITALS: BP 111/83
[2017-03-30 00:08] LABS: CREATINE KINASE 574 UL (21-232); TROPONIN-I 0.036 ng/mL (0.000-0.060)
[2017-03-30 00:16] LABS: CKMB 5.4 U/L (0.0-3.6)
--- NOTE | 2017-03-30 02:21 | NUR ---
PT REMOVED IV AT THIS TIME WILL ATTEMPT TO RESITE
[2017-03-30 04:00] VITALS: BP 118/64
[2017-03-30 06:27] LABS: CKMB 3.4 U/L (0.0-3.6); CREATINE KINASE 475 UL (21-232); TROPONIN-I 0.033 ng/mL (0.000-0.060)
--- NOTE | 2017-03-30 07:00 | NUR ---
REPORT RECIEVED FROM OFF GOING NURSE. SEE ASSESSMENT FLOW SHEET. PT RIGHT HAND AND RIGHT LEG CONGTRACTED. PT PULLED OUT HIS IV THE PREVIOUS NIGHT. PT UNABLE TO SPEAK CLEARLY. HE ONLY MAKES GARBLE NOISES. BLADDER SCAN SHOWS 383 ML. PT HAS NOT VOIDED IN 2 DAYS. PER LAND, INSERT FC AFTER 400ML. PT UNABLE TO SWALLOW THICKEN LIQUIDS AND TAKE PO MEDICATION WITH OUT COUGHING. ST PAGED. PT BREATHING NORMAL AND UNLABORED. CALL LIGHT IN REACH. WILL CONT POC
[2017-03-30 08:18] VITALS: BP 169/98
--- NOTE | 2017-03-30 10:00 | NUR ---
IV PLACED IN LEFT AC X2 ATTEMPTS. DRESSING C/D/I. IV PATENT WITH NO REDDNESS/EDEMA/OR PAIN NOTED.
[2017-03-30 11:34] VITALS: BP 154/82
--- NOTE | 2017-03-30 12:00 | NUR ---
BLADDER SCANNER SHOWS 419ML. NOTIFIED WITH NEW ORDERS TO PLACE A FC.
--- NOTE | 2017-03-30 12:30 | NUR ---
FC INSERTED IN STERILE FASION. CONCETRATED ETIENNE URNINE NOTED. FC SECCURED AND URINE SAMPLE COLLECTED AND SENT TO LAB. BREATHING NORMAL AND UNLAORD. CALL LIGHT REACH. WILL CONT POC
[2017-03-30 13:04] LABS: ANION GAP 18.3 mmol/L (8-16); CALCIUM 7.2 mg/dL (8.5-10.1); CARBON DIOXIDE 19.3 mmol/L (21.0-32.0); CREATININE - SERUM 5.7 mg/dL (0.6-1.3); POTASSIUM - SERUM 3.6 mmol/L (3.5-5.1)
[2017-03-30 13:52] LABS: APPEARANCE CLOUDY (CLEAR); BILIRUBIN NEGATIVE (NEGATIVE); COLOR DK YELLOW (YELLOW); GLUCOSE NEGATIVE (NEGATIVE); KETONE NEGATIVE (NEGATIVE); LEUKOCYTE ESTERASE 1+ (NEGATIVE); NITRITE NEGATIVE (NEGATIVE); PROTEIN TRACE mg/dL (NEGATIVE); SPECIFIC GRAVITY 1.015 (1.005-1.020); UROBILINOGEN NORMAL (NORMAL)
[2017-03-30 13:53] LABS: BACTERIA MANY /hpf (NONE SEEN); EPITHELIAL CELLS 0-5 /hpf (0-5); WHITE CELLS - URINE 25-50 /hpf (0-5)
[2017-03-30 14:32] LABS: HEMATOCRIT 27.8 % (42.0-54.0); HEMOGLOBIN 9.2 g/dL (13.5-17.5); MCH 28.8 pg (26.0-34.0); MCHC 33.1 g/dL (31.0-37.0); MCV 86.9 fL (80.0-100.0); MEAN PLATELET VOLUME 12.1 fL (7.4-10.4); PLATELET COUNT 248 10x3/uL (130-400); RDW 16.8 % (11.5-14.5); WBC 25.3 10x3/uL (4.8-10.8)
[2017-03-30 15:03] LABS: LYMPHOCYTES 6 % (15-50); MONOCYTES 2 % (2-11); NEUTROPHILS 92 % (40-80); PLATELET ESTIMATE NORMAL
[2017-03-30 15:50] VITALS: BP 162/88
--- NOTE | 2017-03-30 15:55 | NUR ---
Wound care: Right knee: 1.5cm x 1.5cm x scab Right díaz: 1cm x 0.5cm x scab Right heel: 5cm x 5cm x unblanchable redness (stage 1 pressure injury) Right plantar foot below #5 toe: 1cm x 1cm (deep tissue injury) Right ischial: 4cm x 2cm (deep tissue injury) Right elbow: 2cm x 2cm x intact blood blister (deep tissue injury) Left medial heel: 1cm x 0.5cm (stage 2 pressure injury) Sacrum/coccyx has blanchable redness Right great toe has blanchable redness. All extremities are contractured. Right knee is up to his chest. He is incontinent of bowel and bladder. Pt requires total care. Recommend protecting all bony prominences from pressure by turning q 2 hours while in bed.
--- NOTE | 2017-03-30 16:00 | NUR ---
ST HERE AT BED SIDE. FAILED ST SWALLOW EVAL AND ST RECOMENDS NPO. MD HERE AND PLACED PT ON A BANANA D5 BAG AT 125ML/H. BREATHING NORMAL AND UNLABORED. CALL LIGHT IN REACH. WILL CONT POC
[2017-03-30 19:00] VITALS: BP 111/57
--- NOTE | 2017-03-30 19:49 | NUR ---
RESUMED CARE OF PT, LYING IN BED WITH EYES CLOSED RESPIRATIONS EVEN AND UNLABORED ON ROOM AIR. LEFT AC INFUSING BANANA BAG @ 125. SAM TO GRAVITY. NO NEEDS NOTED AT THIS TIME, WILL CONTINUE TO MONITOR. SEE NURSE ASSESSMENT. CALL LIGHT IN REACH.
[2017-03-31] VITALS: BP 105/54
--- NOTE | 2017-03-31 02:51 | NUR ---
CALL LIGHT IN REACH. WILL CONTINUE WITH PLAN OF CARE. WILL CONTINUE TO MONITOR.
[2017-03-31 04:00] VITALS: BP 108/82
--- NOTE | 2017-03-31 06:32 | NUR ---
INCONTINENT EPISODE CLEANED UP, LINENS AND BED BATH GIVEN. NO CHANGES FROM PREVIOUS ASSESSMENT. CALL LIGHT IN REACH.
[2017-03-31 07:11] LABS: BASOPHILS 0 % (0-2); EOSINOPHILS 0.6 % (0-7); HEMOGLOBIN 8.5 g/dL (13.5-17.5); IMMATURE GRANULOCYTES 0.5 % (0-5); LYMPHOCYTES 7.4 % (15-50); MCH 28.2 pg (26.0-34.0); MCV 83.1 fL (80.0-100.0); MEAN PLATELET VOLUME 10.6 fL (7.4-10.4); MONOCYTES 3.9 % (2-11); NEUTROPHILS 87.6 % (40-80); PLATELET COUNT 195 10x3/uL (130-400); RBC 3.01 10x6/uL (4.20-6.10); RDW 16.8 % (11.5-14.5); WBC 21.2 10x3/uL (4.8-10.8)
[2017-03-31 07:16] LABS: ALBUMIN 1.3 g/dL (3.4-5.0); ANION GAP 15.4 mmol/L (8-16); BILIRUBIN - TOTAL 0.55 mg/dL (0.2-1.3); CARBON DIOXIDE 19.6 mmol/L (21.0-32.0); CREATININE - SERUM 5.3 mg/dL (0.6-1.3); MAGNESIUM - SERUM 1.9 mg/dL (1.8-2.4); PHOSPHOROUS 3.1 mg/dL (2.5-4.9); PROTEIN - SERUM 6.7 g/dL (6.4-8.2)
--- NOTE | 2017-03-31 07:38 | NUR ---
AM ROUNDING DONE WITH PATIENT APPEARING TO BE ALSEEP. RESP ARE EVEN AND NON LABORED. ON ROOM AIR. SAM CATH SEEN WITH ETIENNE COLORED URINE. CONTRACURES TO RIGHT ARM AND RIGHT LEG. SR X 4, DECREASED TO 3. WILL CPOC.
[2017-03-31 09:12] VITALS: BP 121/66
--- NOTE | 2017-03-31 09:23 | NUR ---
UA SENT TO LAB ORDERED.
--- NOTE | 2017-03-31 10:36 | NUR ---
IN ADDITION TO DOCUMENTED SKIN ISSUES THERE IS ALSO ON THE RIGHT ISCHIAL AND 4.0 CM X 2.0 CM DEEP TISSURE INJURY, ON THE RIGHT ELBOW A 2.0 CM X 2.0 CM BLOOD BLISTER THAT HAS NOT POPPED, DEEP TISSURE INJURY. A STAGE 2 PRESSURE INJURY TO THE LEFT HEEL MEASURES 1.0 CM X 0.5 CM. THE SACRUM HAS REDNESS THAT IS BLANCHABLE.
[2017-03-31 11:33] VITALS: BP 114/72
--- NOTE | 2017-03-31 12:36 | NUR ---
PATIENT CLEANED FROM INCONT. OF BOWEL. TURNED TO LEFT SIDE WITH PILLOW BETWEEN LEGS AND ABDUCTION PILLOW PROTECTING FROM RAIL. TOLERATED WELL. BUTT PASTE APPLIED.
--- NOTE | 2017-03-31 15:25 | NUR ---
1512-OP PERMITS SIGNED AND WITNESSED PER VERBAL CONSENT OF PATIENT, WITNESSED BY DR TERAN AND MYSELF.
[2017-03-31 16:13] VITALS: BP 120/69
--- NOTE | 2017-03-31 16:21 | NUR ---
TO OR VIA BED.
--- NOTE | 2017-03-31 16:57 | NUR ---
PEG PLACED. REPORTED TO Sivakumar DIGGS TO HAVE TANGUNAN TO PUT IN FEEDING ORDERS AND MAY USE TOMORROW. ALSO STATED NEEDED AN ABDOMINAL BINDEER WHEN TO ROOM.
--- NOTE | 2017-03-31 17:30 | NUR ---
1715-RETURNS TO ROOM POST PEG TUBE PLACEMENT. ABODONIAL BINDER PLACED. WILL MONITOR. STILL NPO. SUCTION SET UP THEY HAD TO SUCTION HIM IN THE OR.
--- NOTE | 2017-03-31 17:52 | NUR ---
Patient Name: NIHARIKA STEWART Admission Status: ER Accout number: [id number] Admission Date: 03-28-2017 : 1945 Admission Diagnosis:DEHYDRATION Attending: KRZYSZTOF JOHNSON Current LOS: 3 Anticipated DC Date: Planned Disposition: Intermediate Facility Primary Insurance: MEDICARE A & B PLANNED EXTERNAL PROVIDER: [facility], MEDICARE REHAB BED Discharge Planning Comments: * Is the patient Alert and Oriented? Yes 0 * How many steps to enter\\exit or inside your home? NONE 0 * PCP DR. JOHNSON 0 * Pharmacy [facility] 0 * Preadmission Environment Intermediate Facility 0 * [facility] * ADLs Partial Dependent 0 * Partial ADLs (Assistance needed) Ambulation Bathing Dressing Medication Management Toileting Transfers 0 * Equipment Other 0 * Other Equipment ALL EQUIPMENT PROVIDED BY PRISON FACILITY 0 * List name and contact numbers for known caregivers / representatives who currently or will assist patient after discharge: NOHEMI LUQUE, FRIEND, 0 * Community resources currently utilized None 0 * Please name any agencies selected above. NONE 0 * Additional services required to return to the preadmission environment? No 0 * Can the patient safely return to the preadmission environment? Yes 0 * Has this patient been hospitalized within the prior 30 days at any hospital? Yes 0 CM MET WITH PT IN ROOM TO DISCUSS DISCHARGE PLANNING AND NEEDS. PT USED TO LIVE IN A HOME ALONE, BUT HAS BEEN IN REHAB FOR "A WHILE" AT [facility]. PT REPORTS HE IS STILL IN REHAB AND WILL GO BACK THERE WHEN ABLE. PT DOES NOT KNOW WHY HE CAME TO THE HOSPITAL BUT HOPES TO GET BACK TO REHAB SOON. FOR DISCHARGE BACK TO [facility], FAX DISCHARGE INFORMATION TO [facility] AT [phone]. NURSE REPORT TO BE CALLED TO [facility] AT [phone]. PT TO TRANSPORT VIA AMBULANCE IF UNABLE TO SIT SAFELY FOR DURATION OF TRANSPORT. Correction Lieutenant: Hardy Orantes
[2017-03-31 19:00] VITALS: BP 147/96
--- NOTE | 2017-03-31 22:41 | NUR ---
WOUND CARE NOTE: RIGHT KNEE 1.5*1.5 WITH SCAB RIGHT SÁNCHEZ 1*0.5 WITH SCAB RIGHT HEEL 5*5 UNBLANCHABLE REDNESS STAGE 1 RIGHT PLANTAR 1*1 DEEP TISSUE INJURY RIGHT ISCHIAL 4*2 DEEP TISSUE INJURY RIGHT ELBOW 2*2 INTACT BLOOD BLISTER LEFT HEEL 1*0.5 STAGE 2 SACRUM BLANCHABLE REDNESS RIGHT GREAT TOE BLANCHABLE REDNESS ALL EXTREMITIES ARE CONTRACTED PT IS INCONTINENT PT REQUIRES TOTAL CARE WILL TURN PT Q2 HOURS
--- NOTE | 2017-03-31 22:51 | NUR ---
PT IN BED SITTING UP. GROANS WHEN SPOKEN TO. UNABLE TO UNDERSTAND ANYTHING HE IS SAYING. EVEN AND UNLABORED RESPIRATIONS NOTED WILL CONTINUE TO MONITOR
[2017-04-01] VITALS: BP 140/86
[2017-04-01 04:00] VITALS: BP 142/87
[2017-04-01 05:32] LABS: BASOPHILS 0 % (0-2); EOSINOPHILS 0.6 % (0-7); HEMATOCRIT 22.7 % (42.0-54.0); IMMATURE GRANULOCYTES 0.3 % (0-5); LYMPHOCYTES 8.1 % (15-50); MCH 29.3 pg (26.0-34.0); MCHC 35.2 g/dL (31.0-37.0); MCV 83.2 fL (80.0-100.0); MEAN PLATELET VOLUME 11.5 fL (7.4-10.4); MONOCYTES 3.3 % (2-11); NEUTROPHILS 87.7 % (40-80); PLATELET COUNT 158 10x3/uL (130-400); RBC 2.73 10x6/uL (4.20-6.10); RDW 17.1 % (11.5-14.5)
[2017-04-01 05:33] LABS: WBC 12.5 10x3/uL (4.8-10.8)
[2017-04-01 05:59] LABS: ANION GAP 16.6 mmol/L (8-16); CALCIUM 7.1 mg/dL (8.5-10.1); CARBON DIOXIDE 19.3 mmol/L (21.0-32.0); CREATININE - SERUM 4.2 mg/dL (0.6-1.3)
[2017-04-01 06:01] LABS: POTASSIUM - SERUM 2.9 mmol/L (3.5-5.1)
--- NOTE | 2017-04-01 07:50 | NUR ---
AM ROUNDING DONE WITH PATIENT FACE IS FLUSHED, TEMP IS 99.0, RESP ARE 30. NOTHING SEEN IN EMAR FOR TEMP. PAGE INTO DR JOHNSON. ABDOMINAL BINDER IN USE OVER CLAMPED PEG TUBE. ON 4L PER NC, SUCTION SET UP AT BEDSIDE. LEFT AC SEEN WITH BANANA BAG INFUSING AT 125 CC/HR. SAM CATH WITH CONCENTRATED URINE ETIENNE IN COLOR.
--- NOTE | 2017-04-01 07:55 | NUR ---
NEW ORDERS RECEIVED PER DR WOODWARD
[2017-04-01 07:59] VITALS: BP 176/98
--- NOTE | 2017-04-01 11:51 | NUR ---
PATIENT HAS MULTIPLE PRESSURE SORES THAT HAVE NOT CHANGED SINCE YESTERDAY. SEE THAT ASSESSMENT FOR MEASUREMENTS PLEASE.
[2017-04-01 11:52] VITALS: BP 122/57
--- NOTE | 2017-04-01 11:59 | NUR ---
RESTING WITH EYES CLOSED, RESP ARE EVEN AND NON LABORED. APPEARS PAINFREE AND FEVER FREE AT THIS TIME. WILL CONTINUE TO MONITOR.
--- NOTE | 2017-04-01 12:10 | NUR ---
CLEANED UP FROM INCONT. OF STOOL AND PLACED ON LEFT SIDE WITH PILLOW FOR COMFORT.
--- NOTE | 2017-04-01 13:50 | NUR ---
Nutrition Follow Up: Pt was nonverbal at the time of RD visit. Spoke with nursing. Pt is POD 1 PEG placement. +BM 03/31/17. Meds noted including Albumin. Labs reviewed - BUN, Cr continue elevated. When ok with surgery, rec start TF of Suplena @ 10 ml/hr. Advance 10 ml every 12 hours as tolerated to goal rate of 40 ml/hr. Water flushes 40 ml/hr. Once TF has been started rec decreasing IV fluids. Goal rate will provide 1728 kcal, 42 g protein and 700 ml free water. 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 RD following.
[2017-04-01 16:12] VITALS: BP 134/52
--- NOTE | 2017-04-01 17:14 | NUR ---
PATIENT HAS HAD SEVERAL INCONT. EPISODES OF STOOL (SEE FLOWSHEET). HE HAS BEEN TURNED EVERY 2 HOURS AND BUTT PASTE APPLIED TO BOTTOM.
--- NOTE | 2017-04-01 17:20 | NUR ---
RESULTS FROM 1400 RE-DRAW OF K+ THAT WASN'T DRAWN ON TIME IS 3.7.
--- NOTE | 2017-04-01 17:42 | NUR ---
OK TO USE PEG TUBE FOR MEDS PAST CRUSHING THEM WELL PER DR SANCHEZ.
--- NOTE | 2017-04-01 18:06 | NUR ---
CALLED EPHRAIM FLEMING, CENTERLESS GRINDER OPERATOR FOR A KANGAROO PUMP FOR TUBE FEEDINGS. TALKED TO DIETARY AND ASKED FOR SOME JEVITY 1.5.
[2017-04-01 19:00] VITALS: BP 179/65
--- NOTE | 2017-04-01 19:15 | NUR ---
JEVITY 1.5 TUBE FEEDING STARTED AT 10 CC/HR ORDERED WITH 25 CC/HR WATER FLUSH. HOB AT 30 DEGREES.
--- NOTE | 2017-04-01 19:24 | NUR ---
PT IN BED LABORED RESPIRATIONS NOTED O2 A 4L/MIN VIA NASAL CANNULA O2 SAT 90% PT RESPOSITIONED. PT IS NONVERBAL AND UNABLE TO TELL ME IF HE HAS ANY NEEDS. WILL CONTINUE TO MONITOR
[2017-04-02] VITALS: BP 117/44
--- NOTE | 2017-04-02 01:46 | NUR ---
PT O2 SAT DIPPED DOWN TO 78 RESPIRATORY CALLED OXIMIZER PLACED AT 12L/MIN
[2017-04-02 04:00] VITALS: BP 148/49
[2017-04-02 06:07] LABS: BASOPHILS 0.1 % (0-2); EOSINOPHILS 0.1 % (0-7); IMMATURE GRANULOCYTES 0.4 % (0-5); LYMPHOCYTES 2.8 % (15-50); MCH 28.3 pg (26.0-34.0); MCHC 34.1 g/dL (31.0-37.0); MEAN PLATELET VOLUME 12.2 fL (7.4-10.4); MONOCYTES 2.3 % (2-11); NEUTROPHILS 94.3 % (40-80); PLATELET COUNT 147 10x3/uL (130-400); RBC 2.65 10x6/uL (4.20-6.10); RDW 16.7 % (11.5-14.5); WBC 13.9 10x3/uL (4.8-10.8)
[2017-04-02 06:14] LABS: ANION GAP 16.2 mmol/L (8-16); CALCIUM 7.4 mg/dL (8.5-10.1); CARBON DIOXIDE 17.7 mmol/L (21.0-32.0); CREATININE - SERUM 3.3 mg/dL (0.6-1.3); POTASSIUM - SERUM 3.9 mmol/L (3.5-5.1)
[2017-04-02 06:21] LABS: HEMOGLOBIN 7.5 g/dL (13.5-17.5)
--- NOTE | 2017-04-02 07:20 | NUR ---
SPOKE TO LEW VALDEZ ABOUT PTS CODE STATUS. NURSE THAT CARES FOR PT AT [facility] EXPLAINED THAT HE IS A DNR AT THEIR FACILITY. TOLD ME THEY WOULD SEND THE ORDER OVER FOR PTS DNR STATUS.
--- NOTE | 2017-04-02 07:30 | NUR ---
REPORT RECIEVED. PT RR ELEVATED AND LABORED. PT ON 15 L OXIMIZER. BAT BOY/GIRL IN ROOM GETTING VS. O2 SAT IS 86. WILL SPEAK TO RESPIRATORY THERAPY ABOUT PT CONDITION. PT CONTRACTED ON RIGHT SIDE. WILL CTM.
--- NOTE | 2017-04-02 07:59 | NUR ---
SPOKE TO RESPIRATORY THERAPIST ABOUT PT O2 SATURATION. RESPIRATORY THERAPY ENCOURAGED PT TO COUGH AND INCREASED O2 SAT TO 93%.
[2017-04-02 08:38] VITALS: BP 138/75
--- NOTE | 2017-04-02 09:39 | NUR ---
NUTRITION F/U CHART REVIEWED. ORDERED JEVITY 1.5 BRIEN TUBE FEEDS PER MD CONSULT. GOAL RATE 45 CC/HR. ADDED MAG AND PHOS TO AM LABS X 3 DAYS. PT AT RISK FOR REFEEDING SYNDROME. RD FOLLOWING
--- NOTE | 2017-04-02 10:15 | NUR ---
MORNING MEDS GIVEN, CHECKED RESIDUAL, LESS THAN 5 MLS. PEG TUBE SITE HAS SCANT YELLOW-BROWN COLORED DRAINAGE AROUND SITE. PTS BREATHING STILL LABORED, WILL CTM.
--- NOTE | 2017-04-02 11:41 | NUR ---
PRBCS ORDERED. PT UNABLE TO CONSENT OR SIGN FOR BLOOD PRODUCTS. CALLED DOTTY BORJA, TOLD ME TO SEE WHAT DR. JOHNSON SAYS. PT HAS NO DIRECT FAMILY HE IS IN TOUCH WITH. CALLED LONGTERM WHERE PT STAYS AND STAFF EXPLAINED THAT HE IS HIS OWN POA. CONTACTED WASHING MACHINE INSTALLER ALSO ABOUT SITUATION, EXPLAINED TO ME TO CALL DOCTOR OR DATABASE ADMINISTRATION MANAGER ABOUT SITUATION. WILL CTM PT.
--- NOTE | 2017-04-02 12:45 | NUR ---
TUBE FEEDING TUBING CHANGED, PATIENT REPOSITIONED. CHECKED RESIDUAL PRIOR TO RESTARTING TUBE FEEDING, LESS THAN 5MLS REDISUDAL SHOWN. PTS RR IS LABORED AND ELEVATED. PT IS TRYING TO COMMUINICATE, BUT IS VERY DIFFICULT TO UNDERSTAND. CANNOT FORM WORDS. PT IS RESTLESS, WILL CTM.
[2017-04-02 12:54] VITALS: BP 116/84
--- NOTE | 2017-04-02 15:45 | NUR ---
PT REPOSITIONED, RESIDUAL CHECKED - LESS THAN 5 MLS RESIDUAL. GAVE AFTERNOON MEDS, PT REFUSED NYSTATIN, WOULD NOT OPEN MOUTH. PT RESTING QUIELTLY, RESPIRATIONS HAVE DECREASED SINCE EARLIER TODAY.
[2017-04-02 16:37] VITALS: BP 131/57
--- NOTE | 2017-04-02 17:20 | NUR ---
BED BATH GIVEN, BARRIER CREAM APPLIED, PT TURNED. RR LABORED AND ELEVATED. PT FOLLOWS COMMANDS AT TIMES, BUT RESISTS BEING TURNED. PTS REDDNESS ON BUTTOCK IS NOW AN SMALL, OPEN SORE. PT ON A Q2 TURN SCHEDULE. VERY DIFFICULT TO TURN PT AND KEEP HIM TURNED DO TO THE CONTRACTURES THE PT HAS. WILL CTM.
--- NOTE | 2017-04-02 17:55 | NUR ---
DR. JOHNSON AT BEDSIDE, GAVE VERBAL ORDER TO CONSULT DR. PERALTA. GAVE VERBAL ORDER FOR UPDRAFT TX [address] JOHNSON ALSO REPORTED THAT SHE WILL SIGN PTS BLOOD CONSENT. WILL START THE FIRST UNIT OF BLOOD AFTER CONSENT IS SIGNED, PT CAN NOD HEAD, BUT UNABLE TO SIGN THE CONSENTS. WILL CTM PT.
--- NOTE | 2017-04-02 18:30 | NUR ---
OBTAINED CONSENT FROM DR. JOHNSON FOR BLOOD. WILL PASS ALONG PT CONDITION IN REPORT WELL BLOOD ORDERS. NEXT SHIFT TO HANG BLOOD PRODUCTS.
--- NOTE | 2017-04-02 18:31 | NUR ---
SPOKE TO DR. JOHNSON ABOUT CODE STATUS, GAVE VERBAL ORDER TO MAKE PT DNR PER PT REQUEST FROM THE LONG-TERM.
[2017-04-02 19:00] VITALS: BP 163/45
--- NOTE | 2017-04-02 22:41 | NUR ---
PT IN BED UNABLE TO VOCALIZE NEEDS LABORED RESPIRATIONS NOTED O2 SAT 90% ON 15L VIA OXIMIZER WILL CONTINUE TO MONITOR
--- NOTE | 2017-04-03 00:45 | NUR ---
0045: UPON ENTERING ROOM, PT FOUND TO BE WITHOUT RESPIRATION OR PULSE. NO HEART TONES AUSCULTATED. PT IS A DO NOT RESUSCITATE. 0047: DR JOHNSON NOTIFIED OF PT CONDITION. REQUESTS TO BE TRANSFERRED TO THE ER PHYSICIAN, DR LAZARO, SO HE MAY COME TO THE PT'S ROOM AND PRONOUNCE . 0050: CALL TO PT'S NEXT OF KIN, NOHEMI LUQUE. VOICEMAIL REACHED. MESSAGE LEFT. 0053: DR LAZARO HERE AND PRONOUNCES . RECORD SIGNED AT THIS TIME. 0055: [facility] CALLED, SPOKE WITH EBONI DONNELLY - NOTIFIED OF PT'S . STATES NOT A DONOR CANDIDATE D/T POOR DONOR QUALITY. 0100: CALL TO [facility], SPOKE WITH NURSE FERRO. REQUESTED FURTHER CONTACT NUMBERS FOR PT'S NEXT OF KIN. RECEIVED 2 NEW NUMBERS TO CALL. LEFT MESSAGE [phone]. THE OTHER NUMBER IS NOT IN SERVICE. ALSO TRIED NUMBER THAT IS ON FILE HERE ONCE AGAIN AND LEFT ANOTHER MESSAGE [phone].
--- NOTE | 2017-04-03 05:18 | NUR ---
SPOKE WITH NURSE, PILLO, AT [facility]. STATES SHE COULD NOT FIND A HOME OF CHOICE ON FILE. NOHEMI LUQUE CALLED ON A HOURLY BASIS FOR HOME INFORMATION AND TO NOTIFY HIM OF PATIENT'S . UNABLE TO REACH HIM THUS FAR. WILL CONTINUE TO TRY AND GET A HOLD OF MR LUQUE.
--- NOTE | 2017-04-03 07:30 | NUR ---
REPORT GIVEN FROM NIGHTSHIFT NURSE. PT HAS EARLIER IN THE SHIFT. ALL PAPERWORK FILLED OUT JUST WAITING ON POA TO CONFIRM RELEASE TO A HOME. WILL CONTINUE TO TRY TO REACH HIM.
--- NOTE | 2017-04-03 07:35 | NUR ---
ALMA CALLED AND WAS NOTIFIED ABOUT . ALMA IS GOING TO CALL AROUND TO HOMES AND GET BACK TO US SOON POSSIBLE.
--- NOTE | 2017-04-03 09:04 | NUR ---
ALMA DECIDED [facility] NOTIFIED HOME AT THIS TIME.
== END 2017-04-03 10:07 | DRG 682 ==
LOC: D.ER 11:24 → D.M2 18:50 → OBSVTIME 19:00 → D.M2 23:00
PROVIDERS: Emergency Medicine; Internal Medicine Gastroenterology; Internal Medicine Nephrology; Physician Assistant; Urology; ADMIT Family Medicine
PROC: 0T9B70Z Drainage of Bladder with Drainage Device, Via Natural or Artificial Opening (ICD-10-PCS; 2017-03-30)
PROC: 0DH63UZ Insertion of Feeding Device into Stomach, Percutaneous Approach (ICD-10-PCS; principal; 2017-03-31 16:30)
DX: N17.9 Acute kidney failure, unspecified (principal); E43 Unspecified severe protein-calorie malnutrition; R53.2 Functional quadriplegia; J96.90 Respiratory failure, unspecified, unspecified whether with hypoxia or hypercapnia; J18.9 Pneumonia, unspecified organism; E87.0 Hyperosmolality and hypernatremia; E87.2 Acidosis; N13.8 Other obstructive and reflux uropathy; N39.0 Urinary tract infection, site not specified; I69.951 Hemiplegia and hemiparesis following unspecified cerebrovascular disease affecting right dominant side; B37.0 Candidal stomatitis; J44.0 Chronic obstructive pulmonary disease with (acute) lower respiratory infection; E86.0 Dehydration; N40.1 Benign prostatic hyperplasia with lower urinary tract symptoms; D64.9 Anemia, unspecified; E78.5 Hyperlipidemia, unspecified; F32.9 Major depressive disorder, single episode, unspecified; I12.9 Hypertensive chronic kidney disease with stage 1 through stage 4 chronic kidney disease, or unspecified chronic kidney disease; N18.9 Chronic kidney disease, unspecified; I25.10 Atherosclerotic heart disease of native coronary artery without angina pectoris; Z72.0 Tobacco use; Z68.22 Body mass index [BMI] 22.0-22.9, adult; E87.6 Hypokalemia; R62.7 Adult failure to thrive; N32.9 Bladder disorder, unspecified